=== PATIENT | male | born 1970 | race Caucasian/White ===

== ENCOUNTER 2021-02-17 19:12 | Emergency (ER) | payer BC, SELFPAY ==
--- NOTE | 2021-02-16 19:43 | ECG_ITS ---
Test Reason : CHESTTIGHTNESS Blood Pressure : / mmHG Vent. Rate : 101 BPM Atrial Rate : 107 BPM P-R Int : 000 ms QRS Dur : 084 ms QT Int : 360 ms P-R-T Axes : 000 050 244 degrees QTc Int : 466 ms Atrial fibrillation with rapid ventricular response with premature ventricular or aberrantly conducted complexes ST & T wave abnormality, consider inferior ischemia ST & T wave abnormality, consider anterolateral ischemia Abnormal ECG When compared with ECG of 17-FEB-2021 19:33, Anterolateral ST elevations are not present nonspecific ST-T changes present now Referred By: Darion Harris Electronically Signed By:Levon Almaguer
[2021-02-17 19:25] VITALS: BP 187/100; PULSE 118; RESP 15; O2SAT 98; BMI 40.7
--- NOTE | 2021-02-17 19:27 | PC.NURSE ---
pt has chest tightness with difficutly breathing per pt. ekg done 192. ekg seen by doctor nasra and pt brought back to room 12. pt received the covid vac one week ago and not presents with these symptom. Skin pink warm and dry. talking in full sentences no s/s of distress noted by this rn.
--- NOTE | 2021-02-17 19:29 | ECG_ITS ---
Test Reason : CHESTTIGHTNESS Blood Pressure : / mmHG Vent. Rate : 094 BPM Atrial Rate : 094 BPM P-R Int : 156 ms QRS Dur : 084 ms QT Int : 360 ms P-R-T Axes : 054 051 066 degrees QTc Int : 450 ms Normal sinus rhythm Possible Left atrial enlargement Anteroseptal infarct , possibly acute ACUTE GA / STEMI Abnormal ECG When compared with ECG of 28-JUN-2019 08:09, Anteroseptal infarct is now Present ST elevation now present in Anterior leads T wave inversion now evident in Anterior leads Referred By: Darion Harris Electronically Signed By:SHANI GRANADOS
--- NOTE | 2021-02-17 19:33 | ECG_ITS ---
Test Reason : CHESTTIGHTNESS Blood Pressure : / mmHG Vent. Rate : 090 BPM Atrial Rate : 090 BPM P-R Int : 156 ms QRS Dur : 090 ms QT Int : 348 ms P-R-T Axes : 047 044 066 degrees QTc Int : 425 ms Normal sinus rhythm Anterior infarct (cited on or before 17-FEB-2021) ACUTE CT / STEMI Abnormal ECG When compared with ECG of 17-FEB-2021 19:31, No significant change was found Referred By: Darion Harris Electronically Signed By:Levon Almaguer
--- NOTE | 2021-02-17 19:38 | ED_ITS ---
HPI - Chest Pain General Chief Complaint: Chest Pain Stated Complaint: chest tightness Time Seen by Provider: 02/17/21 19:28 Source: patient Mode of arrival: ambulatory Limitations: no limitations History of Present Illness HPI narrative: Patient with history of diabetes , high cholesterol not taking any medications noticed chest tightness feeling since yesterday evening to bed woke up at 04:00 was feeling fine around 07:00 start feeling chest tightness again which is going on all day along with that patient feels hard of breathing no radiation of pain no diaphoresis no nausea no vomiting patient never had s imilar pain before patient received Onel Oenl vaccine 2 weeks ago complaint: chest discomfort Related Data Allergies Allergy/AdvReac Type Severity Reaction Status Date / Time No Known Allergies Allergy Unverified 06/08/20 15:34 Review of Systems Review of Systems: Constitutional : No Weight loss, No Fever, No Chills ENT/Mouth : No sore throat, No Rhinorrhea Eyes: No Eye Pain, No Swelling Cardiovascular :+Chest Pain, no palpitations Respiratory : No Cough, No Sputum, +shortness of breath Gastrointestinal : no Nausea, No Vomiting, No Diarrhea, No abdominal Pain, no black stools Genitourinary : No Dysuria, No Urinary Frequency Musculoskeletal : No joint pain, No Myalgias, No Joint Swelling Skin : No Skin Lesions, No rash Neuro : No Weakness, No Numbness, No Dizziness, No Headache Psych : No Anxiety/Panic, No Depression Heme/Lymph: No Bruising, No Lymphadenopathy Endocrine : No Polyuria, No Polydipsia All other systems reviewed and are negative [facility] Past Medical History Medical History (Updated 02/18/21 @ 00:00 by Barby Rodriguez) Diabetes mellitus Hyperlipemia Social History Social History Advance Directives: No Advance Directives Information Provided: Yes Physical Exam Vital Signs: Vital Signs: Last Vital Signs Temp 98 F 02/17/21 19:54 Pulse 113 H 02/17/21 19:54 Resp 18 02/17/21 19:54 BP 147/90 H 02/17/21 20:00 Pulse Ox 97 02/17/21 19:54 Body Mass Index 34.0 bp 180//110, W[place] 100 Appearance: Alert. Oriented X3. No acute distress. Eyes: PERRLA, No Nystagmus ENT: Pharynx normal. Oral Mucosa moist Neck: Normal inspection. Neck supple. CVS: Normal heart rate and rhythm. Pulses normal. Respiratory: No respiratory distress. Equal air entry bilateral, no wheezing/rales/rhonchi Abdomen: Soft and nontender. Bowel sounds are present, no mass palpable, no CVA tenderness Skin: Skin warm and dry. Normal skin color. Normal skin turgor. Extremities: No lower extremity edema. No calf tenderness Neuro: Oriented X 3. No motor deficit. No sensory deficit.No cerebellar signs , cranial nerves II-XII intact MDM - Chest Pain MDM Narrative Medical decision making narrative: Patient with STEMI anteroseptal V3 V4 without any other changes for > 12 hours in duration. Case discussed with Dr. Kunz at [facility] will accept the patient not sure need a cardiac catheterization /ER Patient given 5000 units heparin IV, Brilinta 180 mg, aspirin 162 mg, Lipitor 80 mg and started on nitroglycerin drip last blood pressure was 140/90 pulse rate 110 Lab Data Attestation: I reviewed the patient's lab results. Result diagrams: 02/17/21 19:42 02/17/21 19:42 Labs: Lab Results 02/17/21 02/17/21 02/17/21 Range/Units 19:42 19:42 19:42 WBC 9.0 (4.8-10.8) X10*3/uL RBC 4.99 (4.60-5.80) X10*6/uL Hgb 12.7 L (14.0-18.0) g/dl Hct 38.1 L (42-52) % MCV 76.4 L (80-98) fL MCH 25.5 L (27.0-33.0) pg MCHC 33.3 (31.0-36.0) g/dl RDW 13.4 (11.0-16.0) % Plt Count 255 (160-400) X10*3/uL MPV 10.1 (9.4-12.4) fL Immature Gran % (Auto) 0.3 (0.0-0.4) % Neut % (Auto) 67.1 (45-73) % Lymph % (Auto) 21.4 (20-40) % Campbell % (Auto) 9.3 (2-11) % Eos % (Auto) 1.7 (0-4) % Baso % (Auto) 0.2 (0-2) % Lymph # (Auto) 1.9 (1.2-4.9) X10*3/uL Campbell # (Auto) 0.8 (0.1-1.2) X10*3/uL Eos # (Auto) 0.2 (0.0-0.4) X10*3/uL Baso # (Auto) 0.0 (0.0-0.2) X10*3/uL Abs Immat Gran (auto) 0.03 (0.00-0.03) X10*3/uL Absolute Neuts (auto) 6.0 (2.0-8.3) X10*3/uL Absolute Nucleated RBC 0.000 (0.0-0.012) X10*3/uL Nucleated RBC % (auto) 0.0 (0.0-0.2) /100WBC PT 10.5 L (10.8-13.0) SEC INR 0.9 (0.9-1.1) APTT 32.6 (24.1-38.0) SEC D-Dimer < 200 NG/ML Sodium 135 (135-145) mmol/L Potassium 4.2 (3.3-5.1) mmol/L Chloride 102 (96-108) mmol/L Carbon Dioxide 22 (22-29) mmol/L Anion Gap 15 (12-20) BUN 25 H (9-16) mg/dL Creatinine 1.57 H (0.5-1.4) mg/dL Estim Creat Clear Calc 68.4 Estimated GFR 47 Random Glucose 339 H (60-115) mg/dL Calcium 9.1 (8.4-10.2) mg/dL Troponin I High Sens (<3.5-35.0) ng/L COVID-19 ([facility]) (Negative) COVID-19 Clin Com 02/17/21 02/17/21 02/17/21 Range/Units 19:42 19:42 19:55 WBC (4.8-10.8) X10*3/uL RBC (4.60-5.80) X10*6/uL Hgb (14.0-18.0) g/dl Hct (42-52) % MCV (80-98) fL MCH (27.0-33.0) pg MCHC (31.0-36.0) g/dl RDW (11.0-16.0) % Plt Count (160-400) X10*3/uL MPV (9.4-12.4) fL Immature Gran % (Auto) (0.0-0.4) % Neut % (Auto) (45-73) % Lymph % (Auto) (20-40) % Campbell % (Auto) (2-11) % Eos % (Auto) (0-4) % Baso % (Auto) (0-2) % Lymph # (Auto) (1.2-4.9) X10*3/uL Campbell # (Auto) (0.1-1.2) X10*3/uL Eos # (Auto) (0.0-0.4) X10*3/uL Baso # (Auto) (0.0-0.2) X10*3/uL Abs Immat Gran (auto) (0.00-0.03) X10*3/uL Absolute Neuts (auto) (2.0-8.3) X10*3/uL Absolute Nucleated RBC (0.0-0.012) X10*3/uL Nucleated RBC % (auto) (0.0-0.2) /100WBC PT (10.8-13.0) SEC INR (0.9-1.1) APTT Cancelled (24.1-38.0) SEC D-Dimer NG/ML Sodium (135-145) mmol/L Potassium (3.3-5.1) mmol/L Chloride (96-108) mmol/L Carbon Dioxide (22-29) mmol/L Anion Gap (12-20) BUN (9-16) mg/dL Creatinine (0.5-1.4) mg/dL Estim Creat Clear Calc Estimated GFR Random Glucose (60-115) mg/dL Calcium (8.4-10.2) mg/dL Troponin I High Sens 6529.5 H* (<3.5-35.0) ng/L COVID-19 ([facility]) Negative (Negative) COVID-19 Clin Com See Note ECG Data ECG #1: Attestation: I personally reviewed and interpreted this ECG as follows: Ischemic changes: acute STEMI Interpretation: Heart rate [address] elevation V3 V4 with no reciprocal changes impression STEMI Discharge Plan Discharge Clinical Impression: ST elevation (STEMI) myocardial infarction Patient Disposition: er Acute Care Hospital Transfer Details: [facility] [employer] Interventions: Acute Care Transfer Worksheet (ED) Last Done: 02/17/21 20:06 Discharge Date/Time: 02/17/21 20:09
[2021-02-17 19:39] VITALS: BP 180/110; PULSE 105
[2021-02-17] MEDS: Nitroglycerin 0.4 MG TAB.SUBL SUBLINGUAL (19:39)
[2021-02-17] MEDS: Heparin Sodium,Porcine 5,000 UNIT/ML VIAL 5000 UNIT IVPUSH (19:39)
[2021-02-17] MEDS: Aspirin Enteric Coated 81 MG TABLET.DR 162 MG PO (19:39)
[2021-02-17] MEDS: Ticagrelor 90 MG TABLET 180 MG PO (19:41)
[2021-02-17] MEDS: Atorvastatin Calcium 80 MG TABLET PO (19:45)
--- NOTE | 2021-02-17 19:47 | PC.NURSE ---
EMS present by church secretary desk awaiting paperwork. this RN made EMS aware that the patient was ready for transport and asked if they could get him on the stretcher as they were noted to be standing by. PT with at bedside, pt alert, conversing in full and complete sentences. Pt and aware of and agreeable to plan for [place] [facility]
[2021-02-17 19:49] LABS: MANUAL DIFF FLAG NO
[2021-02-17 19:52] LABS: Basophils Percent Auto 0.2 % (0-2); Eosinophils Absolute Auto 0.2 X10*3/uL (0.0-0.4); Eosinophils Percent Auto 1.7 % (0-4); Hematocrit 38.1 % (42-52); Hemoglobin 12.7 g/dl (14.0-18.0); Imm Gran Abs Auto 0.03 X10*3/uL (0.00-0.03); Imm Gran Pct Auto 0.3 % (0.0-0.4); Lymphocytes Absolute Auto 1.9 X10*3/uL (1.2-4.9); Lymphocytes Percent Auto 21.4 % (20-40); Mean Corpuscular HGB Conc 33.3 g/dl (31.0-36.0); Mean Corpuscular Hemoglobin 25.5 pg (27.0-33.0); Mean Corpuscular Volume 76.4 fL (80-98); Mean Platelet Volume 10.1 fL (9.4-12.4); Monocytes Absolute Auto 0.8 X10*3/uL (0.1-1.2); Monocytes Percent Auto 9.3 % (2-11); Neutrophils Percent Auto 67.1 % (45-73); Platelet Count 255 X10*3/uL (160-400); Red Blood Count 4.99 X10*6/uL (4.60-5.80); Red Cell Distribution Width 13.4 % (11.0-16.0)
--- NOTE | 2021-02-17 19:52 | PC.NURSE ---
Pt transferred to EMS stretcher
[2021-02-17 19:54] VITALS: BP 180/110; PULSE 113; RESP 18; TEMP 36.6; O2SAT 97; BMI 34.0
[2021-02-17] MEDS: Nitroglycerin/D5W 100 MG/250 ML INFUS..BTL IVCONT (19:54)
[2021-02-17 20:00] VITALS: BP 147/90
[2021-02-17 20:00] LABS: INTERNATIONAL NORM RATIO 0.9 (0.9-1.1); Prothrombin Time 10.5 SEC (10.8-13.0)
[2021-02-17 20:03] LABS: Partial Thromboplastin Time 32.6 SEC (24.1-38.0)
[2021-02-17 20:17] LABS: Anion Gap 15 (12-20); Blood Urea Nitrogen 25 mg/dL (9-16); Calcium 9.1 mg/dL (8.4-10.2); Carbon Dioxide 22 mmol/L (22-29); Chloride 102 mmol/L (96-108); Creatinine Clr Calc Pharmacy 68.4; Estimated Glomerular Filt Rate 47; Glucose Random 339 mg/dL (60-115); Potassium 4.2 mmol/L (3.3-5.1); Sodium 135 mmol/L (135-145)
[2021-02-17 20:29] LABS: COVID-19 Test Negative (Negative); IDNOW Serial# 9DD0AD1C
[2021-02-17 21:07] LABS: D Dimer < 200 NG/ML
== END 2021-02-17 20:09 | disposition short-term general hospital (02) ==
PROVIDERS: Emergency Provider Internal Medicine
DX: I21.3 ST elevation (STEMI) myocardial infarction of unspecified site (principal); R07.9 Chest pain, unspecified; E11.9 Type 2 diabetes mellitus without complications; Z20.822 Contact with and (suspected) exposure to COVID-19; Z79.899 Other long term (current) drug therapy
CPT/HCPCS: 36415; 80048; 84484; 85025; 85379; 85610; 85730; 87635; 93005; 96374; 96375; 99285

== ENCOUNTER → 2021-02-22 12:17 | Outpatient (BNVA) | payer BC, SELFPAY | PROVIDERS: Visit Provider Internal Medicine ==

== ENCOUNTER → 2021-04-24 14:05 | Outpatient (REF) | payer BC, SELFPAY ==
--- NOTE | 2021-04-24 14:09 | CA_ITS ---
Transthoracic Echocardiogram Patient (Last, First, Middle): Srinath Penn T Gender: Male Date of : 1970 Age: 50 Procedure Date: 04/24/2021 Procedure Type: Transthoracic Echocardiogram Location: OP Height: 175.26 cm Weight: 107.5 kg BSA: 2.22 m2 Heart Rate: bpm BP: 120 / 78 mmHg Tile Machine Operator: BRIDGER Referring MD: Hari Reich MD Symptoms: I22.0 - Subsequent ST elevation (STEMI) myocardial infarc... Study Quality: Fair/Contrast ECG Rhythm: Sinus Conclusions: - The left ventricular systolic function is normal. The calculated ejection fraction is 61% by biplane method. - The mid anteroseptal segment is hypokinetic. - No obvious valvular pathology seen on this study. Findings Procedure Information Contrast agent, definity, is being given per protocol without apparent complications. Left Ventricle Normal left ventricular cavity size. There is mildly increased left ventricular wall thickness. The left ventricular systolic function is normal. The calculated ejection fraction is 61% by biplane method. Diastolic function is normal for age. Wall Motion Rest Echo Findings The mid anteroseptal segment is hypokinetic. Right Ventricle Normal right ventricular cavity size and systolic function. Atria Both atria are normal in size. Aortic Valve There is a normal trileaflet aortic valve. There is no aortic valve stenosis. There is no aortic valve regurgitation. Mitral Valve The mitral valve appears normal. There is trace mitral valve regurgitation. There is no mitral valve stenosis. Pulmonic Valve The pulmonic valve was not well visualized. Tricuspid Valve Normal tricuspid valve structure. There is trace tricuspid valve regurgitation. The pulmonary artery systolic pressure is normal. Great Vessels The aortic annulus, sinuses of valsalva, and asc aorta are normal in size. Venous The inferior vena cava is normal in size and collapses greater than 50% with inspiration. Pericardium/Pleural There is no evidence of pericardial effusion. Prior Study Comparison Changes noted compared to prior study dated: 08/21/2007. See comment on wall motion. Recommendations, Care & Conclusions No obvious valvular pathology seen on this study. Measurements 2D Linear Measurements IVSd: 1.02 0.6-0.9/0.6-1.0 cm LVIDd: 4.20 3.9-5.3/4.2-5.9 cm LVIDd Index: 1.89 2.4-3.2/2.2-3.1 cm/m2 LVIDs: 2.63 2.0-3.6 cm LVPWd: 1.04 0.7-1.1 cm Ao Root: 3.60 2.1-3.5 cm LA Diam: 2.90 2.7-3.8/3.0-4.0 cm LAIDs Index: 1.31 1.5-2.3 cm/m2 LV Mass: 178.08 67-162/88-224 g LV Mass Index: 80.21 43-95/49-115 g/m2 LVOT Diam: 2.20 3.0+(-)1.3 cm 2D Systolic Function EF 4C: 58.70 >55% EF 2C: 62.30 >55% EF BiP: 60.90 >55% Mitral Valve MV Pk E: 0.84 MV PK A: 0.63 MV Decel Time: 236.00 E/A: 1.30 E'Lateral: 11.00 E'Medial: 6.31 E/E' Med: 13.30 E/E' Lat: 7.60 PHT: 69.00 MVA PHT: 3.19 Decel Dawson: 3.56 Aortic Valve AoV Pk Noah: 1.13 AoV Mn Noah: 0.79 AoV VTI: 0.27 AoV Pk Grad: 5.00 Aov Mn Grad: 3.00 CELIA Cont.VTI: 3.79 LVOT LVOT Pk Noah: 1.12 LVOT Mn Noah: 0.83 LVOT VTI: 0.27 LVOT Pk Grad: 5.00 LVOT Mn Grad: 3.00 LVOT Diam: 2.20 LVOT Area: 3.80 Diastolic Function MV Pk E: 0.84 MV Pk A: 0.63 E/A: 1.30 E'Medial: 6.31 E/E' Med: 13.30 E' Laterial: 11.00 E/E' Lat: 7.60 Right Ventricle TAPSE (mm): 2.12 Tricuspid Valve TR Pk Noah: 2.01 TR Pk Grad: 16.00 RA Press: 3.00 RVSP: 19.00 Great Vessels Aorta Ao Root-2D: 3.60 2.0-3.7 cm Ao Asc: 3.20 2.1-3.4 cm Ao Arch: 2.80 Updated in Other Vendor System with Status of Final Hari Reich MD electronically signed on 04/25/2021 3:54:21 PM with status of Final
== END ==
LOC: HO.CARD 14:05
PROVIDERS: Visit Provider Internal Medicine
DX: I22.0 Subsequent ST elevation (STEMI) myocardial infarction of anterior wall (principal); I25.5 Ischemic cardiomyopathy
CPT/HCPCS: 93306; Q9957

== ENCOUNTER → 2021-05-15 15:11 | Outpatient (BNVA) | payer BC, SELFPAY | PROVIDERS: PCP Internal Medicine; Referring Provider Internal Medicine; Visit Provider Internal Medicine ==

== ENCOUNTER 2021-06-21 15:33 | Outpatient (REF) | payer BC, SELFPAY ==
[2021-06-21 16:59] LABS: Basophils Percent Auto 0.5 % (0-2); Eosinophils Absolute Auto 0.2 X10*3/uL (0.0-0.4); Eosinophils Percent Auto 2.7 % (0-4); Hematocrit 37.8 % (42-52); Imm Gran Abs Auto 0.02 X10*3/uL (0.00-0.03); Imm Gran Pct Auto 0.3 % (0.0-0.4); Lymphocytes Absolute Auto 1.6 X10*3/uL (1.2-4.9); Lymphocytes Percent Auto 26.2 % (20-40); MANUAL DIFF FLAG NO; Mean Corpuscular HGB Conc 31.7 g/dl (31.0-36.0); Mean Corpuscular Hemoglobin 26.3 pg (27.0-33.0); Mean Corpuscular Volume 82.9 fL (80-98); Mean Platelet Volume 9.9 fL (9.4-12.4); Monocytes Absolute Auto 0.5 X10*3/uL (0.1-1.2); Monocytes Percent Auto 8.2 % (2-11); Neutrophils Absolute Auto 3.7 X10*3/uL (2.0-8.3); Neutrophils Percent Auto 62.1 % (45-73); Platelet Count 239 X10*3/uL (160-400); Red Blood Count 4.56 X10*6/uL (4.60-5.80); Red Cell Distribution Width 15.1 % (11.0-16.0)
[2021-06-21 17:33] LABS: Estimated Average Glucose 131 mg/dL; Hemoglobin A1c % 6.2 %
[2021-06-21 17:53] LABS: Appearance Urine CLEAR; Color Urine YELLOW; Glucose Urine UA NEG (NEG); Leukocyte Esterase Urine NEG (NEG); Nitrite Urine NEG (NEG); Specific Gravity - Urine 1.025 (1.005-1.025); Urine Blood NEG (NEG); Urine Ketones NEG (NEG); Urine Protein NEG (NEG-TRACE)
[2021-06-21 17:58] LABS: Alanine Aminotransferase 32 U/L (0-40); Albumin Level 4.3 g/dL (3.5-5.0); Alkaline Phosphatase 63 U/L (39-117); Anion Gap 13 (12-20); Aspartate Amino Transferase 18 U/L (5-37); Bilirubin Total 0.6 mg/dL (0.0-1.0); Blood Urea Nitrogen 19 mg/dL (9-16); Calcium 9.4 mg/dL (8.4-10.2); Carbon Dioxide 25 mmol/L (22-29); Chloride 107 mmol/L (96-108); Estimated Glomerular Filt Rate 56; Glucose Fasting 95 mg/dL (60-99); Iron 44 mcg/dL (45-160); Percent Iron Saturation 12 % (15-50); Potassium 4.9 mmol/L (3.3-5.1); Sodium 140 mmol/L (135-145); Total Iron Binding Capacity 361 mcg/dL (228-428); Total Protein 6.9 g/dL (6.5-8.0); Unsaturated Iron Binding 317 ug/dL
[2021-06-21 17:59] LABS: Alanine Aminotransferase 31 U/L (0-40); Albumin Level 4.3 g/dL (3.5-5.0); Alkaline Phosphatase 64 U/L (39-117); Aspartate Amino Transferase 18 U/L (5-37); Bilirubin Direct 0.2 mg/dL (0.0-0.5); Bilirubin Total 0.6 mg/dL (0.0-1.0); Cholesterol 138 mg/dL; HDL Cholesterol 39 mg/dL; LDL Cholesterol Calculated 75 mg/dl; Total Protein 6.8 g/dL (6.5-8.0); Triglycerides 124 mg/dL
[2021-06-21 18:02] LABS: Creatinine Urine 143.29 mg/dL; Microalbum/Creatinine Ratio Ur 17.4 ug/mg cr
== END 2021-06-21 15:34 | disposition home or self-care (01) ==
LOC: HO.LAB 15:33
PROVIDERS: Absent Provider Internal Medicine; PCP Internal Medicine; Visit Provider Internal Medicine
DX: I25.10 Atherosclerotic heart disease of native coronary artery without angina pectoris (principal); E11.9 Type 2 diabetes mellitus without complications; E78.5 Hyperlipidemia, unspecified; D64.9 Anemia, unspecified
CPT/HCPCS: 36415; 80053; 80061; 80076; 81003; 82043; 82248; 83036; 83540; 85025

== ENCOUNTER 2021-10-17 10:27 | Outpatient (REF) | payer BC, SELFPAY ==
[2021-10-17 10:50] LABS: MANUAL DIFF FLAG NO
[2021-10-17 11:01] LABS: Basophils Percent Auto 0.6 % (0-2); Eosinophils Absolute Auto 0.2 X10*3/uL (0.0-0.4); Eosinophils Percent Auto 3.1 % (0-4); Hematocrit 40.7 % (42.0-52.0); Hemoglobin 13.3 g/dl (14.0-18.0); Imm Gran Abs Auto 0.02 X10*3/uL (0.00-0.03); Imm Gran Pct Auto 0.3 % (0.0-0.4); Lymphocytes Absolute Auto 1.8 X10*3/uL (1.2-4.9); Lymphocytes Percent Auto 25.8 % (20-40); Mean Corpuscular HGB Conc 32.7 g/dl (31.0-36.0); Mean Corpuscular Volume 82.6 fL (80.0-98.0); Monocytes Absolute Auto 0.5 X10*3/uL (0.1-1.2); Monocytes Percent Auto 7.2 % (2-11); Neutrophils Absolute Auto 4.3 x10*3/uL (2.0-8.3); Platelet Count 240 X10*3/uL (160-400); Red Blood Count 4.93 X10*6/uL (4.60-5.80); White Blood Count 6.8 X10*3/uL (4.8-10.8)
[2021-10-17 11:11] LABS: Estimated Average Glucose 140 mg/dL; Hemoglobin A1c % 6.5 %
[2021-10-17 11:34] LABS: Appearance Urine CLEAR; Color Urine YELLOW; Glucose Urine UA NEG (NEG); Leukocyte Esterase Urine NEG (NEG); Nitrite Urine NEG (NEG); Specific Gravity - Urine 1.025 (1.005-1.025); Urine Blood NEG (NEG); Urine Ketones NEG (NEG); Urine Protein NEG (NEG-TRACE)
[2021-10-17 11:36] LABS: Alanine Aminotransferase 26 U/L (0-40); Alkaline Phosphatase 65 U/L (39-117); Anion Gap 12 (12-20); Aspartate Amino Transferase 16 U/L (5-37); Bilirubin Total 0.4 mg/dL (0.0-1.0); Blood Urea Nitrogen 19 mg/dL (9-16); Calcium 9.4 mg/dL (8.4-10.2); Carbon Dioxide 21 mmol/L (22-29); Chloride 110 mmol/L (96-108); Cholesterol 132 mg/dL; Estimated Glomerular Filt Rate 52; Glucose Fasting 133 mg/dL (60-99); HDL Cholesterol 30 mg/dL; LDL Cholesterol Calculated 66 mg/dl; Potassium 4.4 mmol/L (3.3-5.1); Sodium 139 mmol/L (135-145); Total Protein 6.5 g/dL (6.5-8.0); Triglycerides 181 mg/dL
[2021-10-17 12:00] LABS: Creatinine Urine 142.69 mg/dL; Microalbum/Creatinine Ratio Ur 5.6 ug/mg cr
== END 2021-10-17 10:28 | disposition home or self-care (01) ==
LOC: HO.LAB 10:27
PROVIDERS: PCP Internal Medicine; Visit Provider Internal Medicine
DX: E11.9 Type 2 diabetes mellitus without complications (principal); I25.10 Atherosclerotic heart disease of native coronary artery without angina pectoris; I10 Essential (primary) hypertension; R60.9 Edema, unspecified; E78.00 Pure hypercholesterolemia, unspecified
CPT/HCPCS: 36415; 80053; 80061; 81003; 82043; 83036; 85025

== ENCOUNTER → 2021-11-21 09:09 | Outpatient (BNVA) | payer BC, SELFPAY | PROVIDERS: PCP Internal Medicine; Visit Provider Internal Medicine ==

== ENCOUNTER 2022-01-23 14:29 | Outpatient (REF) | payer BC, SELFPAY ==
[2022-01-23 15:13] LABS: Estimated Average Glucose 143 mg/dL; Hemoglobin A1c % 6.6 %
[2022-01-23 15:19] LABS: Alanine Aminotransferase 22 U/L (0-40); Alkaline Phosphatase 63 U/L (39-117); Anion Gap 11 (12-20); Aspartate Amino Transferase 17 U/L (5-37); Bilirubin Total 0.9 mg/dL (0.0-1.0); Blood Urea Nitrogen 18 mg/dL (9-16); Calcium 9.2 mg/dL (8.4-10.2); Carbon Dioxide 24 mmol/L (22-29); Chloride 108 mmol/L (96-108); Estimated Glomerular Filt Rate 53; Glucose Random 130 mg/dL (60-115); Potassium 4.2 mmol/L (3.3-5.1); Sodium 139 mmol/L (135-145); Total Protein 6.6 g/dL (6.5-8.0)
[2022-01-23 15:25] LABS: Creatinine Urine 167.49 mg/dL; Microalbum/Creatinine Ratio Ur 9.5 ug/mg cr
== END 2022-01-23 14:30 | disposition home or self-care (01) ==
LOC: HO.LAB 14:29
PROVIDERS: PCP Internal Medicine; Visit Provider Internal Medicine
DX: E11.22 Type 2 diabetes mellitus with diabetic chronic kidney disease (principal); I25.10 Atherosclerotic heart disease of native coronary artery without angina pectoris; N18.9 Chronic kidney disease, unspecified; Z79.4 Long term (current) use of insulin
CPT/HCPCS: 36415; 80053; 82043; 83036

== ENCOUNTER 2022-04-02 06:13 | Day surgery (SDC) | payer BC, SELFPAY ==
[2022-03-27 13:37] VITALS: BMI 37.0
--- NOTE | 2022-04-01 12:05 | P.CONAN_ITS ---
Documented by User: Kristina Ribera NP 04/01/22 12:12 HPI - Anesthesia Eval Consult details Narrative: 51yo M for Colonoscopy stable at 11/2021 Cardiology visit, 6 month f/u - ok to hold brillinta, but pt not to stop asa PMFSH Active Problems Active Problems: All Active Problems (Updated 03/27/22 @ 13:40 by Marbella Long RN) Subsequent ST elevation (STEMI) myocardial infarction of anterior wall (Acute) Ischemic cardiomyopathy (Acute) Type 2 diabetes mellitus with unspecified complications (Acute) Essential hypertension (Acute) Other and unspecified hyperlipidemia (Acute) Past Medical History Medical History CAD (coronary artery disease) Cardiomyopathy Diabetes mellitus HTN (hypertension) Hyperlipemia Myocardial infarction Family History Family History Father Cancer High cholesterol Mother High cholesterol Heart disease Maternal Grandmother Pacemaker Maternal Grandfather Heart attack Maternal Uncle Heart attack Surgical History Surgical History History of heart artery stent (~01/2021) Social History Social History Patient Tobacco Use Status: Never used Tobacco Use of substances other than those prescribed or required for medical reasons: Yes Substance Use Frequency: Occasionally Are you DNR?: No Advance Directives: No Advance Directives Information Provided: Yes Meds Allergies Allergy/AdvReac Type Severity Reaction Status Date / Time No Known Allergies Allergy Verified 11/21/21 09:15 Home Medications Medication Instructions Recorded Confirmed Last Taken Type atorvastatin 80 mg tablet 80 mg PO BEDTIME 02/22/21 03/27/22 Unknown History carvedilol 6.25 mg tablet 6.25 mg PO BID 02/22/21 03/27/22 Unknown History isosorbide mononitrate 30 mg 30 mg PO DAILY 02/22/21 03/27/22 Unknown History tablet,extended release 24 hr lisinopril 5 mg tablet 5 mg PO DAILY 02/22/21 03/27/22 Unknown History ticagrelor 90 mg tablet 90 mg PO BID 02/22/21 03/27/22 Unknown History dulaglutide 1.5 mg/0.5 mL 1.5 mg subcut QWEEK 05/15/21 03/27/22 Unknown History subcutaneous pen injector (Trulicity) aspirin 81 mg chewable tablet 81 mg PO DAILY 11/21/21 04/02/22 03/28/22 History insulin lispro 100 unit/mL subcut 11/21/21 11/21/21 Unknown History subcutaneous solution (Humalog U-100 Insulin) Exam Exam Date and Time: April 01, 2022 1205 Height,Weight and Vital Signs: Height 5 ft 9 in Weight 113.852 kg Pertinent Lab Results Pertinent Lab Results: Laboratory Tests 10/17/21 01/23/22 10:48 14:40 WBC 6.8 Hgb 13.3 L Hct 40.7 L Plt Count 240 Sodium 139 Potassium 4.2 Chloride 108 Carbon Dioxide 24 BUN 18 H Creatinine 1.43 H Narrative Narrative: ECHO 04/2021 (post stemi/stent) Conclusions: - The left ventricular systolic function is normal.? The ? calculated ejection fraction is 61% by biplane method. ? - The mid anteroseptal segment is hypokinetic. ? - No obvious valvular pathology seen on this study.? Assessment and Plan Assessment Anesthesia Assessment: Chart Reviewed Documented by User: Day Wheeler MD 04/02/22 07:44 [facility] Past Medical History Medical History CAD (coronary artery disease) Cardiomyopathy Diabetes mellitus HTN (hypertension) Hyperlipemia Myocardial infarction Functional capacity: independent ambulation Family History Family History Father Cancer High cholesterol Mother High cholesterol Heart disease Maternal Grandmother Pacemaker Maternal Grandfather Heart attack Maternal Uncle Heart attack Family history of problems with anesthesia: No Surgical History Surgical History History of heart artery stent (~01/2021) History of Problems with Anesthesia: No Social History Social History Patient Tobacco Use Status: Never used Tobacco Use of substances other than those prescribed or required for medical reasons: Yes Substance Use Frequency: Occasionally Are you DNR?: No Advance Directives: No Advance Directives Information Provided: Yes Meds Allergies Allergy/AdvReac Type Severity Reaction Status Date / Time No Known Allergies Allergy Verified 11/21/21 09:15 Home Medications Medication Instructions Recorded Confirmed Last Taken Type atorvastatin 80 mg tablet 80 mg PO BEDTIME 02/22/21 03/27/22 Unknown History carvedilol 6.25 mg tablet 6.25 mg PO BID 02/22/21 03/27/22 Unknown History isosorbide mononitrate 30 mg 30 mg PO DAILY 02/22/21 03/27/22 Unknown History tablet,extended release 24 hr lisinopril 5 mg tablet 5 mg PO DAILY 02/22/21 03/27/22 Unknown History ticagrelor 90 mg tablet 90 mg PO BID 02/22/21 03/27/22 Unknown History dulaglutide 1.5 mg/0.5 mL 1.5 mg subcut QWEEK 05/15/21 03/27/22 Unknown History subcutaneous pen injector (Trulicity) aspirin 81 mg chewable tablet 81 mg PO DAILY 11/21/21 04/02/22 03/28/22 History insulin lispro 100 unit/mL subcut 11/21/21 11/21/21 Unknown History subcutaneous solution (Humalog U-100 Insulin) Exam Airway Mallampati Class: II TM Dist: >3cm Neck ROM: Full Heart: RRR Lungs: CTA Assessment and Plan Final Anesthetic Review Family History of Problems with Anesthesia: No History of Problems with Anesthesia: No NPO: Yes ASA Class: II Final Preanesthetic Review: No Changes in Pt Med Stat, Meds/Allgs Chart Reviewed, Consent Obtained/Reviewed and Anes Risks/Benef Reviewed Patient Risk: Low Procedure Risk: Low Anesthetic Plan Anesthetic Plan: MAC:
[2022-04-02 06:43] VITALS: BMI 38.7
[2022-04-02 06:46] LABS: Glucose, Whole Blood 119 mg/dL (60-115)
[2022-04-02 06:49] VITALS: BP 138/92; PULSE 86; RESP 16; TEMP 36.3; O2SAT 98
[2022-04-02] MEDS: Lactated Ringers 1,000 ML 100 ML IVCONT (06:52)
--- NOTE | 2022-04-02 07:22 | MHC.SHP ---
Pre-Procedural Eval Section A Date of Service: 04/02/22 Section B Chief Complaint: Hemorrhage of anus and rectum Details of Present Illness: see H&P no changes Relevant Family History (Specify if Yes): No Relevant Social History: None Present Medications: see Short Stay Collaborative assessment Medical History: No relevant PMH History of Previous Operations: No relevant previous surgery Allergies: Allergies Allergy/AdvReac Type Severity Reaction Status Date / Time No Known Allergies Allergy Verified 11/21/21 09:15 Review of Systems Sugical H&P ROS: Negative: Constitution, Cardiovascular, Respiratory, Neurological, Psychiatric, Hem-Onc, Allergic/Immunologic, Gastrointestinal, Genitourinary, Musculoskeletal, Integumentary, Endocrine and Eyes/Ears/Nose/Throat Exam Surgical H&P Exam: Normal: HEENT, Normal: Heart, Normal: Lungs, Normal: Extremities, Normal: Abdomen, Normal: Skin and Normal: Neurological Plan Diagnosis/Plan: Unchanged I have reviewed the history and physical and performed a pertinent physical examination on my patient. No changes have occurred unless specified.
[2022-04-02 08:00] VITALS: BP 105/66; PULSE 92; RESP 16; TEMP 36.3; O2SAT 94
--- NOTE | 2022-04-02 08:00 | PM.OP ---
Brief Operative Note Date of Service: 04/02/22 Pre-op diagnosis: rectal bleeding Post-op diagnosis: same (colon polyp) Procedure: colonoscopy Surgeon: Ryan Hughes Anesthesia: MAC Was an Paramedic Instructor used for this Procedure?: No Estimated blood loss (mL): 0 Pathology: none sent (polyp x1) Condition: stable Disposition: PACU
[2022-04-02 08:12] LABS: Glucose, Whole Blood 130 mg/dL (60-115)
[2022-04-02 08:15] VITALS: BP 136/91; PULSE 89; RESP 16; O2SAT 97
--- NOTE | 2022-04-02 09:09 | HO.POSTANES ---
Post Anesthesia Evaluation Post Anesthesia Evaluation Vital Signs: Vital Signs Temp Pulse Resp BP Pulse Ox O2 Del Method 04/02/22 08:15 89 16 136/91 H 97 Room Air 04/02/22 08:00 97.3 F 92 16 105/66 94 Room Air 04/02/22 06:49 97.3 F 86 16 138/92 H 98 Room Air Anesthesia: Monitored Mental Status: Awake Pain Control: Satisfactory Nausea/Vomiting: None Hydration: Adequate Anesthesia-Related Issues: No Anes. Related Issues
--- NOTE | 2022-04-02 10:09 | OP_ITS ---
SURGEON: Ryan Hughes MD INDICATIONS: Rectal bleeding. PREOPERATIVE DIAGNOSIS: POSTOPERATIVE DIAGNOSIS: PROCEDURE PERFORMED: ESTIMATED BLOOD LOSS: COMPLICATIONS: ANESTHESIA: ASSISTANTS: SPECIMENS: PROCEDURE: Colonoscopy to the terminal ileum with snare polypectomy. MEDICATIONS: Monitored anesthesia care. DESCRIPTION OF PROCEDURE: History and physical performed. The risks and benefits of the procedure were explained to the patient. Informed consent was obtained. The patient was placed in the left lateral decubitus position. A digital rectal exam was performed and was found to be normal. The Olympus pediatric video colonoscope was introduced into the rectum and advanced to the cecum without difficulty. The cecum was identified by transillumination, palpation, and identification of ileocecal valve, examination was performed. The scope was removed. He tolerated the procedure well and was taken to recovery in stable condition. FINDINGS: The terminal ileum was normal, visualized colonic mucosa was normal. There was a large amount of liquid and semi-digested food rather that limited the sensitivity examination for detection of small polyps. This was particularly present in the right colon, cecum, and descending colon. These areas were not well seen at all and a polyp could have been missed at 35 cm was a 6 mm to 7 mm polyp, which was removed with a snare and recovered via suction. No other polyps were identified. Retroflexed examination showed some small to moderate-sized internal hemorrhoids. IMPRESSION: 1. Colon polyp. 2. Limited examination as above. RECOMMENDATIONS: 1. Follow up the biopsy results. 2. Repeat colonoscopy is recommended in 6-12 months for reexamination of the areas that were not seen well. MD ANGELIA Mejia/TAVIAL / [id number]
== END 2022-04-02 09:09 | disposition home or self-care (01) ==
PROVIDERS: PCP Internal Medicine; Visit Provider Internal Medicine Gastroenterology
PROC: 0DJD8ZZ Inspection of Lower Intestinal Tract, Via Natural or Artificial Opening Endoscopic (ICD-10-PCS; CPT 45378; principal; 2022-04-02 07:30)
DX: K62.5 Hemorrhage of anus and rectum (principal); D12.5 Benign neoplasm of sigmoid colon; K64.8 Other hemorrhoids; R19.7 Diarrhea, unspecified; Z80.0 Family history of malignant neoplasm of digestive organs; I25.10 Atherosclerotic heart disease of native coronary artery without angina pectoris; Z98.61 Coronary angioplasty status; I25.2 Old myocardial infarction; I10 Essential (primary) hypertension; E78.00 Pure hypercholesterolemia, unspecified; E11.9 Type 2 diabetes mellitus without complications; Z79.4 Long term (current) use of insulin; Z79.02 Long term (current) use of antithrombotics/antiplatelets; Z79.82 Long term (current) use of aspirin; Z79.899 Other long term (current) drug therapy; Z87.891 Personal history of nicotine dependence
CPT/HCPCS: 45385; 82947; 88305

== ENCOUNTER → 2022-05-28 09:49 | Outpatient (BNVA) | payer BC, SELFPAY | PROVIDERS: PCP Internal Medicine; Referring Provider Internal Medicine; Visit Provider Internal Medicine | DX: I22.0 Subsequent ST elevation (STEMI) myocardial infarction of anterior wall (principal); I25.5 Ischemic cardiomyopathy; I12.9 Hypertensive chronic kidney disease with stage 1 through stage 4 chronic kidney disease, or unspecified chronic kidney disease; N18.9 Chronic kidney disease, unspecified; E11.22 Type 2 diabetes mellitus with diabetic chronic kidney disease; E78.5 Hyperlipidemia, unspecified | CPT/HCPCS: 93005 ==

== ENCOUNTER 2022-09-09 10:47 | Outpatient (REF) | payer BC, SELFPAY ==
[2022-09-09 13:44] LABS: MANUAL DIFF FLAG NO
[2022-09-09 13:47] LABS: Basophils Absolute Auto 0.1 X10*3/uL (0.0-0.2); Basophils Percent Auto 1.2 % (0-2); Eosinophils Absolute Auto 0.2 X10*3/uL (0.0-0.4); Eosinophils Percent Auto 3.6 % (0-4); Hematocrit 40.6 % (42.0-52.0); Hemoglobin 12.8 g/dl (14.0-18.0); Imm Gran Abs Auto 0.02 X10*3/uL (0.00-0.03); Imm Gran Pct Auto 0.3 % (0.0-0.4); Lymphocytes Absolute Auto 1.8 X10*3/uL (1.2-4.9); Mean Corpuscular HGB Conc 31.5 g/dl (31.0-36.0); Mean Corpuscular Hemoglobin 23.6 pg (27.0-33.0); Mean Corpuscular Volume 74.9 fL (80.0-98.0); Mean Platelet Volume 10.5 fL (9.4-12.4); Monocytes Absolute Auto 0.5 X10*3/uL (0.1-1.2); Monocytes Percent Auto 7.4 % (2-11); Neutrophils Absolute Auto 3.5 x10*3/uL (2.0-8.3); Neutrophils Percent Auto 57.5 % (45-73); Platelet Count 307 X10*3/uL (160-400); Red Blood Count 5.42 X10*6/uL (4.60-5.80); Red Cell Distribution Width 13.6 % (11.0-16.0); White Blood Count 6.1 X10*3/uL (4.8-10.8)
[2022-09-09 13:58] LABS: Estimated Average Glucose 206 mg/dL; Hemoglobin A1c % 8.8 %
[2022-09-09 14:01] LABS: Alanine Aminotransferase 24 U/L (0-40); Albumin Level 4.3 g/dL (3.5-5.0); Alkaline Phosphatase 82 U/L (39-117); Anion Gap 13 (12-20); Aspartate Amino Transferase 15 U/L (5-37); Bilirubin Total 0.6 mg/dL (0.0-1.0); Blood Urea Nitrogen 14 mg/dL (9-16); Calcium 9.8 mg/dL (8.4-10.2); Carbon Dioxide 25 mmol/L (22-29); Chloride 105 mmol/L (96-108); Estimated Glomerular Filt Rate 51; Glucose Random 213 mg/dL (60-115); Potassium 4.5 mmol/L (3.3-5.1); Sodium 138 mmol/L (135-145); Total Protein 6.9 g/dL (6.5-8.0)
[2022-09-09 14:42] LABS: Creatinine Urine 295.23 mg/dL; Microalbum/Creatinine Ratio Ur 101.9 ug/mg cr
== END 2022-09-09 10:48 | disposition home or self-care (01) ==
LOC: HO.10HDL 10:47
PROVIDERS: Visit Provider Internal Medicine
DX: I12.9 Hypertensive chronic kidney disease with stage 1 through stage 4 chronic kidney disease, or unspecified chronic kidney disease (principal); E11.22 Type 2 diabetes mellitus with diabetic chronic kidney disease; N18.9 Chronic kidney disease, unspecified
CPT/HCPCS: 36415; 80053; 82043; 83036; 85025

== ENCOUNTER 2022-12-09 11:23 | Outpatient (REF) | payer BC, SELFPAY ==
[2022-12-09 13:22] LABS: MANUAL DIFF FLAG NO
[2022-12-09 13:32] LABS: Basophils Absolute Auto 0.1 X10*3/uL (0.0-0.2); Basophils Percent Auto 0.8 % (0-2); Eosinophils Absolute Auto 0.2 X10*3/uL (0.0-0.4); Eosinophils Percent Auto 2.6 % (0-4); Hematocrit 39.2 % (42.0-52.0); Hemoglobin 11.8 g/dl (14.0-18.0); Imm Gran Abs Auto 0.04 X10*3/uL (0.00-0.03); Imm Gran Pct Auto 0.7 % (0.0-0.4); Lymphocytes Absolute Auto 1.9 X10*3/uL (1.2-4.9); Lymphocytes Percent Auto 30.6 % (20-40); Mean Corpuscular HGB Conc 30.1 g/dl (31.0-36.0); Mean Corpuscular Hemoglobin 22.5 pg (27.0-33.0); Mean Corpuscular Volume 74.7 fL (80.0-98.0); Mean Platelet Volume 10.6 fL (9.4-12.4); Monocytes Absolute Auto 0.5 X10*3/uL (0.1-1.2); Monocytes Percent Auto 8.2 % (2-11); Neutrophils Absolute Auto 3.5 x10*3/uL (2.0-8.3); Neutrophils Percent Auto 57.1 % (45-73); Platelet Count 327 X10*3/uL (160-400); Red Blood Count 5.25 X10*6/uL (4.60-5.80); Red Cell Distribution Width 14.4 % (11.0-16.0); White Blood Count 6.1 X10*3/uL (4.8-10.8)
[2022-12-09 13:56] LABS: Alanine Aminotransferase 23 U/L (0-40); Alkaline Phosphatase 92 U/L (39-117); Anion Gap 10 (12-20); Aspartate Amino Transferase 20 U/L (5-37); Bilirubin Total 0.4 mg/dL (0.0-1.0); Blood Urea Nitrogen 19 mg/dL (9-16); Calcium 8.9 mg/dL (8.4-10.2); Carbon Dioxide 24 mmol/L (22-29); Chloride 107 mmol/L (96-108); Cholesterol 202 mg/dL; Estimated Glomerular Filt Rate 54; Glucose Fasting 273 mg/dL (60-99); HDL Cholesterol 30 mg/dL; LDL Cholesterol Calculated 97 mg/dl; Potassium 4.4 mmol/L (3.3-5.1); Sodium 137 mmol/L (135-145); Total Protein 6.4 g/dL (6.5-8.0); Triglycerides 378 mg/dL
[2022-12-09 14:33] LABS: Estimated Average Glucose 312 mg/dL; Hemoglobin A1c % 12.5 %
== END 2022-12-09 11:24 | disposition home or self-care (01) ==
LOC: HO.10HDL 11:23
PROVIDERS: Visit Provider Internal Medicine
DX: E11.9 Type 2 diabetes mellitus without complications (principal); E78.00 Pure hypercholesterolemia, unspecified; N18.9 Chronic kidney disease, unspecified; K21.9 Gastro-esophageal reflux disease without esophagitis; Z79.4 Long term (current) use of insulin
CPT/HCPCS: 36415; 80053; 80061; 83036; 85025

== ENCOUNTER → 2023-01-07 14:00 | Outpatient (BNVA) | payer BC, SELFPAY | PROVIDERS: PCP Internal Medicine; Visit Provider Orthopaedic Surgery | DX: Z13.89 Encounter for screening for other disorder (principal) ==

== ENCOUNTER → 2023-01-13 14:17 | Outpatient (BNVA) | payer BC, SELFPAY | PROVIDERS: PCP Internal Medicine; Referring Provider Internal Medicine; Visit Provider Internal Medicine | DX: Z13.89 Encounter for screening for other disorder (principal) ==

== ENCOUNTER 2023-06-06 | Outpatient (REF) | payer BC, SELFPAY ==
[2023-06-06 15:15] LABS: Glucose Random 146 mg/dL (60-115)
[2023-06-06 15:38] LABS: Estimated Average Glucose 194 mg/dL; Hemoglobin A1c % 8.4 % (<6.0)
== END 2023-06-06 00:01 | disposition home or self-care (01) ==
LOC: HO.LAB
PROVIDERS: PCP Internal Medicine; Visit Provider Physician Assistant Surgical
DX: E11.9 Type 2 diabetes mellitus without complications (principal); E66.9 Obesity, unspecified; Z68.36 Body mass index [BMI] 36.0-36.9, adult; Z79.899 Other long term (current) drug therapy
CPT/HCPCS: 36415; 82947; 83036; 99453

== ENCOUNTER 2023-06-06 13:57 | Outpatient (AMB) | payer BC, SELFPAY ==
--- NOTE | 2023-06-06 15:01 | A.OFFVIS_ITS ---
Intake VS Expanded 06/06/23 17:36 Height 5 ft 9 in Weight 244 lb 4 oz BMI 36.1 Intake Visit Reasons: OV Metabolic group clinic Human Resources Benefits Specialist Required: No Allergies No Known Allergies Allergy (Verified 01/13/23 14:23) Medication List - Last Reconciled 06/06/23 by ESTEFANIA Ellis aspirin 81 mg PO DAILY atorvastatin 80 mg PO BEDTIME carvedilol 6.25 mg PO BID dulaglutide (Trulicity) 1.5 mg subcut QWEEK insulin lispro (Humalog U-100 Insulin) subcut isosorbide mononitrate ER 30 mg PO DAILY lisinopril 5 mg PO DAILY nitroglycerin 0.4 mg sublingual Q5M PRN HPI HPI Comments History of Present Illness Details 52 yo male presented for metabolic clini c Listened to presentation Received scale and this was set up with her phone and Withings sandy Went through Right BMI sandy and received a meal plan and exercise plan [facility] Medical History HTN (hypertension) Cardiomyopathy Myocardial infarction CAD (coronary artery disease) Hyperlipemia Diabetes mellitus Surgical History History of heart artery stent (~01/2021) Family History Father Cancer High cholesterol Mother High cholesterol Heart disease Maternal Grandmother Pacemaker Maternal Grandfather Heart attack Maternal Uncle Heart attack Social History Patient Tobacco Use Status: Never used Tobacco Current occupational status: employed 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 Given meal plan, exercise plan and body composition scale. Has my cell number and Dr Dominique for improved communication and encouraged to text with any problems. Orders: Orders Glucose Random Today E11.9 - Type 2 diabetes mellitus without complications Hemoglobin A1c Today E11.9 - Type 2 diabetes mellitus without complications Coding Level of Care Code 99138 RPM Intital setup, [facility] Diagnoses Obesity (BMI 30-39.9) E66.9
[2023-06-06 17:36] VITALS: BMI 36.1
== END 2023-06-06 17:49 | disposition home or self-care (01) ==
LOC: HO.META 13:57
PROVIDERS: PCP Internal Medicine; Visit Provider Physician Assistant Surgical
DX: E66.9 Obesity, unspecified (principal)

== ENCOUNTER 2023-06-20 12:34 | Outpatient (REF) | payer BC, SELFPAY ==
[2023-06-20 13:50] LABS: MANUAL DIFF FLAG NO
[2023-06-20 13:58] LABS: Basophils Absolute Auto 0.1 X10*3/uL (0.0-0.2); Basophils Percent Auto 0.7 % (0-2); Eosinophils Absolute Auto 0.1 X10*3/uL (0.0-0.4); Eosinophils Percent Auto 1.3 % (0-4); Hematocrit 41.2 % (42.0-52.0); Hemoglobin 12.2 g/dl (14.0-18.0); Imm Gran Abs Auto 0.03 X10*3/uL (0.00-0.03); Imm Gran Pct Auto 0.4 % (0.0-0.4); Lymphocytes Absolute Auto 1.8 X10*3/uL (1.2-4.9); Lymphocytes Percent Auto 26.6 % (20-40); Mean Corpuscular HGB Conc 29.6 g/dl (31.0-36.0); Mean Corpuscular Hemoglobin 21.7 pg (27.0-33.0); Mean Corpuscular Volume 73.4 fL (80.0-98.0); Mean Platelet Volume 9.2 fL (9.4-12.4); Monocytes Absolute Auto 0.5 X10*3/uL (0.1-1.2); Monocytes Percent Auto 6.9 % (2-11); Neutrophils Absolute Auto 4.4 x10*3/uL (2.0-8.3); Neutrophils Percent Auto 64.1 % (45-73); Platelet Count 388 X10*3/uL (160-400); Red Blood Count 5.61 X10*6/uL (4.60-5.80); White Blood Count 6.9 X10*3/uL (4.8-10.8)
[2023-06-20 14:26] LABS: Alanine Aminotransferase 15 U/L (0-40); Albumin Level 4.4 g/dL (3.5-5.0); Alkaline Phosphatase 61 U/L (39-117); Anion Gap 17 (12-20); Aspartate Amino Transferase 14 U/L (5-37); Bilirubin Total 0.5 mg/dL (0.0-1.0); Blood Urea Nitrogen 24 mg/dL (9-16); Calcium 9.5 mg/dL (8.4-10.2); Carbon Dioxide 21 mmol/L (22-29); Chloride 107 mmol/L (96-108); Cholesterol 189 mg/dL (<200); Estimated Glomerular Filt Rate 58; Glucose Fasting 95 mg/dL (60-99); HDL Cholesterol 37 mg/dL (>40); LDL Cholesterol Calculated 125 mg/dL (<100); Potassium 4.2 mmol/L (3.3-5.1); Sodium 141 mmol/L (135-145); Total Protein 7.3 g/dL (6.5-8.0); Triglycerides 135 mg/dL (<150)
== END 2023-06-20 12:35 | disposition home or self-care (01) ==
LOC: HO.LAB 12:34
PROVIDERS: Absent Provider Internal Medicine; PCP Internal Medicine; Visit Provider Physician Assistant Surgical
DX: E11.9 Type 2 diabetes mellitus without complications (principal); E78.5 Hyperlipidemia, unspecified; Z79.4 Long term (current) use of insulin
CPT/HCPCS: 36415; 80053; 80061; 85025; 99454

== ENCOUNTER 2023-06-20 12:34 | Outpatient (AMB) | payer BC, SELFPAY ==
--- NOTE | 2023-06-20 12:55 | A.OFFVIS_ITS ---
Intake VS Expanded 06/20/23 13:39 Height 5 ft 9 in Weight 232 lb 9.6 oz BMI 34.3 Intake Visit Reasons: (OV) [facility] Allergies No Known Allergies Allergy (Verified 01/13/23 14:23) HPI HPI Comments History of Present Illness Details he has not done shakes or bars today as he has diagnostic imaging. He has had a couple episodes of indiscretion at the big e, however he is mostly sticking to the meal plan. he has not been exercising as much due to waking at 4 am for work and then leaving at 3 in the afternoon and gets home after an hour. He has noticed an increase in walking outside on his days off. He is tracking calories by [employer] and [employer]. 5-6 days not eating the evening bar on or days. drinking 16-20 oz water Reports that since starting the meal plan, overall feeling much better and BS have improved. Basal rate insulin max 2 u/hr and additional bolus insulin has decreased from an average of 40-50/day down to 18-25 units daily. 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 Recc decrease basal rate to 1.9 u/hr bolus dose has decr to 18-22 from 40-50 Given withings bp cuff and shown how to use it. Coding Level of Care Code 79350 RPM rcrd/trans ea 30 d Diagnoses Obesity (BMI 30-39.9) E66.9
[2023-06-20 13:39] VITALS: BMI 34.3
== END 2023-06-20 13:44 | disposition home or self-care (01) ==
LOC: HO.META 12:34
PROVIDERS: PCP Internal Medicine; Visit Provider Physician Assistant Surgical
DX: E66.9 Obesity, unspecified (principal)

== ENCOUNTER 2023-07-18 14:03 | Outpatient (AMB) | payer BC, SELFPAY ==
--- NOTE | 2023-07-18 12:40 | A.OFFVIS_ITS ---
Intake Intake Visit Reasons: TELEHONE VISIT,metabolic clinic Allergies No Known Allergies Allergy (Verified 01/13/23 14:23) HPI HPI Comments History of Present Illness Details 52 yo male remains in metabolic clinic Has had to work overnights and has had to change the meal plan on those days and He now has a fridge, microwave and mini hot plate at the store so he can cook at the store. he has increased his water to 32-48 oz daily tolerating 2 shakes and 1-2 bars daily and meal. walking 2-3 x per week. normal amount of bolus has decrease from 40-50 to 8-14 units per day. 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 We discussed consistency as a step back to his progress. His blood sugars have significantly improved and he will continue to monitor this. He will text weekly with his weight, blood sugars and blood pressure. Telehealth Telehealth Location of provider rendering services: practice address Location of patient: address on file Patient Identification confirmed using: Name, : Yes Telehealth method: voice only Patient verbally consented to treatment: Yes Patient verbally consented to billing insurance company: Yes Patient informed of any privacy concerns related to visit: Yes Minutes spent on Phone/Video with Pt.: 15 Coding Level of Care Code 40305 RPM each addnl 20 min Diagnoses Obesity (BMI 30-39.9) E66.9
== END 2023-07-18 14:04 | disposition home or self-care (01) ==
LOC: HO.META 14:03
PROVIDERS: PCP Internal Medicine; Visit Provider Physician Assistant Surgical
DX: E66.9 Obesity, unspecified (principal)
CPT/HCPCS: 99499

== ENCOUNTER → 2023-07-18 14:03 | Outpatient (BNVA) | payer BC, SELFPAY | PROVIDERS: PCP Internal Medicine; Visit Provider Physician Assistant Surgical | DX: E66.9 Obesity, unspecified (principal) ==

== ENCOUNTER 2024-01-14 08:49 | Outpatient (AMB) | payer BC, SELFPAY ==
--- NOTE | 2024-01-14 08:50 | MHC.OFFVIS ---
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 In 01/2021, he had ST elevation myocardial infarction of the anterior wall. Subsequently, underwent urgent cardiac catheterization and received LAD stenting. Multiple cardiovascular risk factors including diabetes, hypertension, dyslipidemia. In the past, was not taking care of health because of insurance issues. More recently improved. He stills states that he missed his medications off and on but not too much. No clear cardiac symptoms. 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 Review of Systems Const Denies chills, Denies fatigue, Denies fever(s), Denies frequent falls, Denies weakness, Denies weight gain and Denies weight loss ENT Denies dizziness Card Denies chest pain, Denies leg edema, Denies lightheadedness, Denies palpitations, Denies dyspnea, Denies dyspnea on exertion, Denies orthopnea and Denies other (loss of consciousness) Resp Denies cough, Denies dyspnea and Denies dyspnea on exertion GI Denies hematochezia and Denies change in stool character Musc Denies abnormal gait, Denies muscle weakness, Denies numbness, Denies radiating pain into limb and Denies tingling Neuro Denies abnormal gait, Denies dizziness, Denies frequent falls, Denies numbness, Denies tingling and Denies weakness Endo Denies fatigue and Denies palpitations Physical Exam Vital Signs: Last Vital Signs Pulse 95 01/14/24 08:51 BP 120/78 01/14/24 08:51 BMI result Body Mass Index 37.1 Const General: comfortable and no acute distress Orientation/consciousness: patient oriented x3 HEENT Other: Unremarkable Head: Yes normal to inspection Neck Neck: Yes normal visual inspection Chest Chest palpation & inspection: normal inspection of the chest Resp Auscultation: clear to auscultation bilaterally Cardio Palpation: normal PMI Heart sounds: S1 normal heart sound present, S2 normal heart sound present, no gallops, no murmurs and no rubs GI Palpation (GI): Soft to palpation Back/Spine/Pelvis Other: unremarkable Skin General skin exam: no rashes or lesions noted Neuro General: patient oriented x3 Extrem General: Yes normal to inspection Psych Mental Status: mental status grossly normal Office Procedures EKG Details: EKG with sinus rhythm at 95/Min; no significant ST-T changes and otherwise unremarkable[place] [id number], Complete Assessment & Plan Assessment & Plan (1) Subsequent ST elevation (STEMI) myocardial infarction of anterior wall: Code(s): I22.0 - Subsequent ST elevation (STEMI) myocardial infarction of anterior wall Category: Medical Plan: Cardiac catheterization 01/2021. Status post drug-eluting stent to the mid LAD; also significant diagonal disease. 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 Continue aspirin indefinitely. Continue beta-blockers and high-dose statins. (2) Type 2 diabetes mellitus with unspecified complications: Code(s): E11.8 - Type 2 diabetes mellitus with unspecified complications Category: Medical Plan: Most recent hemoglobin A1c is 8.4%. He is on insulin and Trulicity. (3) Essential hypertension: Code(s): I10 - Essential (primary) hypertension Category: Medical Plan: On carvedilol, lisinopril. No changes. (4) Other and unspecified hyperlipidemia: Code(s): E78.5 - Hyperlipidemia, unspecified Category: Medical Plan: On high-dose statins. According to him, he does miss some doses off and on but not too much. Most recently, LDL on the higher side but prior to that more reasonable. We can recheck. Possibly add Zetia. (5) CKD (chronic kidney disease): Code(s): N18.9 - Chronic kidney disease, unspecified Category: Medical Plan: Last creatinine is 1.31. Orders: Orders LDL Cholesterol Direct Today E78.5 - Hyperlipidemia, unspecified Lipid Panel Today E78.5 - Hyperlipidemia, unspecified Liver Panel Today E78.5 - Hyperlipidemia, unspecified, I25.10 - Atherosclerotic heart disease of [place] coronary artery without angina pectoris Coding Level of Care Code Est Pt Level 4 (46347) Diagnoses Subsequent ST elevation (STEMI) myocardial infarction of anterior wall I22.0 Type 2 diabetes mellitus with unspecified complications E11.8 Essential hypertension I10 Other and unspecified hyperlipidemia E78.5 CKD (chronic kidney disease) N18.9 CPT Codes EKG - CPT: 61287-[id number], Complete ([id number])
[2024-01-14 08:51] VITALS: BP 120/78; PULSE 95; BMI 37.1
== END 2024-01-14 09:17 | disposition home or self-care (01) ==
PROVIDERS: Visit Provider Internal Medicine
DX: I22.0 Subsequent ST elevation (STEMI) myocardial infarction of anterior wall (principal); E11.8 Type 2 diabetes mellitus with unspecified complications; I12.9 Hypertensive chronic kidney disease with stage 1 through stage 4 chronic kidney disease, or unspecified chronic kidney disease; E78.5 Hyperlipidemia, unspecified; N18.9 Chronic kidney disease, unspecified
CPT/HCPCS: 93010; 99214

== ENCOUNTER → 2024-01-14 08:49 | Outpatient (BNVA) | payer BC, SELFPAY | PROVIDERS: Visit Provider Internal Medicine | DX: I12.9 Hypertensive chronic kidney disease with stage 1 through stage 4 chronic kidney disease, or unspecified chronic kidney disease (principal); E11.22 Type 2 diabetes mellitus with diabetic chronic kidney disease; N18.9 Chronic kidney disease, unspecified; E78.5 Hyperlipidemia, unspecified; I25.2 Old myocardial infarction; Z79.899 Other long term (current) drug therapy | CPT/HCPCS: 93005 ==

== ENCOUNTER 2024-03-03 11:13 | Outpatient (REF) | payer BC, SELFPAY ==
[2024-03-03 13:10] LABS: MANUAL DIFF FLAG NO
[2024-03-03 13:42] LABS: Basophils Absolute Auto 0.1 X10*3/uL (0.0-0.2); Basophils Percent Auto 0.9 % (0-2); Eosinophils Absolute Auto 0.1 X10*3/uL (0.0-0.4); Eosinophils Percent Auto 2.4 % (0-4); Hematocrit 38.5 % (42.0-52.0); Hemoglobin 11.6 g/dl (14.0-18.0); Imm Gran Abs Auto 0.02 X10*3/uL (0.00-0.03); Imm Gran Pct Auto 0.3 % (0.0-0.4); Lymphocytes Absolute Auto 1.7 X10*3/uL (1.2-4.9); Lymphocytes Percent Auto 28.9 % (20-40); Mean Corpuscular HGB Conc 30.1 g/dl (31.0-36.0); Mean Corpuscular Hemoglobin 21.4 pg (27.0-33.0); Mean Corpuscular Volume 71.2 fL (80.0-98.0); Mean Platelet Volume 10.1 fL (9.4-12.4); Monocytes Absolute Auto 0.4 X10*3/uL (0.1-1.2); Monocytes Percent Auto 6.9 % (2-11); Neutrophils Absolute Auto 3.5 x10*3/uL (2.0-8.3); Neutrophils Percent Auto 60.6 % (45-73); Platelet Count 368 X10*3/uL (160-400); Red Blood Count 5.41 X10*6/uL (4.60-5.80); Red Cell Distribution Width 15.5 % (11.0-16.0); White Blood Count 5.8 X10*3/uL (4.8-10.8)
[2024-03-03 13:51] LABS: Estimated Average Glucose 154 mg/dL
[2024-03-03 13:57] LABS: Alanine Aminotransferase 20 U/L (0-40); Albumin Level 4.2 g/dL (3.5-5.0); Alkaline Phosphatase 65 U/L (39-117); Aspartate Amino Transferase 16 U/L (5-37); Bilirubin Direct 0.1 mg/dL (0.0-0.5); Bilirubin Total 0.3 mg/dL (0.0-1.0); Cholesterol 166 mg/dL (<200); HDL Cholesterol 35 mg/dL (>40); LDL Cholesterol Calculated 100 mg/dL (<100); Total Protein 7.2 g/dL (6.5-8.0); Triglycerides 156 mg/dL (<150)
[2024-03-03 14:00] LABS: Alanine Aminotransferase 20 U/L (0-40); Albumin Level 4.2 g/dL (3.5-5.0); Alkaline Phosphatase 65 U/L (39-117); Anion Gap 10 (12-20); Aspartate Amino Transferase 14 U/L (5-37); Bilirubin Total 0.3 mg/dL (0.0-1.0); Blood Urea Nitrogen 24 mg/dL (9-16); Calcium 9.5 mg/dL (8.4-10.2); Carbon Dioxide 25 mmol/L (22-29); Chloride 109 mmol/L (96-108); Estimated Glomerular Filt Rate 50; Glucose Random 123 mg/dL (60-115); Iron 28 mcg/dL (45-160); Percent Iron Saturation 7 % (15-50); Potassium 4.5 mmol/L (3.3-5.1); Sodium 139 mmol/L (135-145); Total Iron Binding Capacity 375 mcg/dL (228-428); Total Protein 7.1 g/dL (6.5-8.0); Unsaturated Iron Binding 347 ug/dL
[2024-03-03 14:41] LABS: Microalbum/Creatinine Ratio Ur 24.6 ug/mg cr (<30)
[2024-03-05 08:18] LABS: LDL Cholesterol Direct 111 mg/dL (<100)
== END 2024-03-03 11:14 | disposition home or self-care (01) ==
LOC: HO.10HDL 11:13
PROVIDERS: Referring Provider Internal Medicine; Visit Provider Internal Medicine
DX: E11.9 Type 2 diabetes mellitus without complications (principal); I25.10 Atherosclerotic heart disease of native coronary artery without angina pectoris; E78.5 Hyperlipidemia, unspecified
CPT/HCPCS: 36415; 80053; 80061; 80076; 82043; 82248; 82570; 83036; 83540; 83721; 85025

== ENCOUNTER 2024-07-14 08:14 | Outpatient (AMB) | payer BC, SELFPAY ==
[2024-07-14 08:28] VITALS: BP 124/70; PULSE 92; BMI 37.4
--- NOTE | 2024-07-14 08:28 | MHC.OFFVIS ---
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 In 01/2021, he had ST elevation myocardial infarction of the anterior wall. Subsequently, underwent urgent cardiac catheterization and received LAD stenting. Multiple cardiovascular risk factors including diabetes, hypertension, dyslipidemia. In the past, was not taking care of health because of insurance issues. It is improved now but he states he is still forgets to take meds off and on due to his work schedule. No clear-cut cardiac symptoms like angina. [facility] Medical History HTN (hypertension) Cardiomyopathy Myocardial infarction CAD (coronary artery disease) Hyperlipemia Diabetes mellitus Surgical History History of heart artery stent (~01/2021) Family History (Updated 07/14/24 @ 08:30 by Heidy Manzanares CMA) Father Cancer High cholesterol Mother High cholesterol Heart disease Maternal Grandmother Pacemaker Maternal Grandfather Heart attack Maternal Uncle Heart attack Brother Pacemaker Social History (Updated 07/14/24 @ 08:30 by Heidy Manzanares CMA) Alcohol intake: current Alcohol intake frequency: holidays/special occasions only Patient Tobacco Use Status: Never used Tobacco Current occupational status: employed 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 Review of Systems Const Denies chills, Denies fatigue, Denies fever(s), Denies weight gain and Denies weight loss ENT Denies dizziness Card Reports chest pain, Denies leg edema, Denies lightheadedness, Reports palpitations, Reports dyspnea on exertion, Denies orthopnea and Denies other Resp Denies cough and Reports dyspnea on exertion GI Denies hematochezia and Denies change in stool character Musc Denies abnormal gait, Denies muscle weakness, Denies numbness, Denies radiating pain into limb and Denies tingling Neuro Denies abnormal gait, Denies dizziness, Denies numbness and Denies tingling Endo Denies fatigue and Reports palpitations Physical Exam Vital Signs: Last Vital Signs Pulse 92 07/14/24 08:28 BP 124/70 07/14/24 08:28 BMI result Body Mass Index 37.4 Const General: comfortable and no acute distress Orientation/consciousness: patient oriented x3 HEENT Other: Unremarkable Head: Yes normal to inspection Neck Neck: Yes normal visual inspection Chest Chest palpation & inspection: normal inspection of the chest Resp Auscultation: clear to auscultation bilaterally Cardio Palpation: normal PMI Heart sounds: S1 normal heart sound present, S2 normal heart sound present, no gallops, no murmurs and no rubs GI Palpation (GI): Soft to palpation Back/Spine/Pelvis Other: unremarkable Skin General skin exam: no rashes or lesions noted Neuro General: patient oriented x3 Extrem General: Yes normal to inspection Psych Mental Status: mental status grossly normal Assessment & Plan Assessment & Plan (1) Subsequent ST elevation (STEMI) myocardial infarction of anterior wall: Code(s): I22.0 - Subsequent ST elevation (STEMI) myocardial infarction of anterior wall Category: Medical Plan: Cardiac catheterization 01/2021. Status post drug-eluting stent to the mid LAD; also significant diagonal disease. 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 Continue aspirin indefinitely. Continue beta-blockers and high-dose statins. (2) Type 2 diabetes mellitus with unspecified complications: Code(s): E11.8 - Type 2 diabetes mellitus with unspecified complications Category: Medical Plan: Most recent hemoglobin A1c is 7%. He is on insulin and Trulicity. (3) Essential hypertension: Code(s): I10 - Essential (primary) hypertension Category: Medical Plan: On carvedilol, lisinopril. No changes. (4) Other and unspecified hyperlipidemia: Code(s): E78.5 - Hyperlipidemia, unspecified Category: Medical Plan: On statins Zetia but lipids are still higher than ideal. Try Repatha if it is affordable. (5) CKD (chronic kidney disease): Code(s): N18.9 - Chronic kidney disease, unspecified Category: Medical Plan: Stable. Creatinine is 1.48. Medications: New evolocumab (Repatha SureClick) 140 mg subcut Q2W 7 mL 1RF 3 months Coding Level of Care Code Est Pt Level 4 (79394) Diagnoses Subsequent ST elevation (STEMI) myocardial infarction of anterior wall I22.0 Type 2 diabetes mellitus with unspecified complications E11.8 Essential hypertension I10 Other and unspecified hyperlipidemia E78.5 CKD (chronic kidney disease) N18.9
== END 2024-07-14 08:49 | disposition home or self-care (01) ==
PROVIDERS: PCP Internal Medicine; Visit Provider Internal Medicine
DX: I22.0 Subsequent ST elevation (STEMI) myocardial infarction of anterior wall (principal); E11.8 Type 2 diabetes mellitus with unspecified complications; I12.9 Hypertensive chronic kidney disease with stage 1 through stage 4 chronic kidney disease, or unspecified chronic kidney disease; E78.5 Hyperlipidemia, unspecified; N18.9 Chronic kidney disease, unspecified
CPT/HCPCS: 99214

== ENCOUNTER → 2024-07-14 08:14 | Outpatient (BNVA) | payer BC, SELFPAY | PROVIDERS: PCP Internal Medicine; Visit Provider Internal Medicine ==

== ENCOUNTER 2025-01-03 08:56 | Outpatient (AMB) | payer BC, SELFPAY ==
[2025-01-03 09:06] VITALS: BP 140/80; PULSE 82; BMI 37.8
--- NOTE | 2025-01-03 09:06 | MHC.OFFVIS ---
Vital Signs 01/03/25 09:06 Height 5 ft 9 in Weight 255 lb 11.779 oz BMI 37.8 BP 140/80 H Blood Pressure Location Lt brachial Position Sitting Pulse 82 Pulse Source Monitor Intake Visit Reasons: 6 mth f/up Allergies No Known Allergies Allergy (Verified 01/13/23 14:23) Medication List - Last Reconciled 01/03/25 by Hari Reich MD aspirin 81 mg PO DAILY atorvastatin 80 mg PO BEDTIME carvedilol 6.25 mg PO BID dulaglutide (Trulicity) 1.5 mg subcut QWEEK evolocumab (Repatha SureClick) 140 mg subcut Q2W 3 months ezetimibe 10 mg PO DAILY insulin aspart U-100 subcut TID insulin lispro (Humalog U-100 Insulin) subcut isosorbide mononitrate ER 60 mg PO DAILY lisinopril 5 mg PO DAILY nitroglycerin 0.4 mg sublingual Q5M PRN HPI Comments Details: Srinath is here for follow up regarding coronary disease. In 01/2021, he had ST elevation myocardial infarction of the anterior wall. Subsequently, underwent urgent cardiac catheterization and LAD stenting. Multiple cardiovascular risk factors including diabetes, hypertension, dyslipidemia. In the past, was not taking care of health because of insurance issues. Improved in the last couple of years. For the most part, it seems that he is doing okay but sometimes he feels chest tightness when he is at work and at other times during physical activity. That could be angina. However, no persistent episodes or rest pain episodes. [facility] Medical History HTN (hypertension) Cardiomyopathy Myocardial infarction CAD (coronary artery disease) Hyperlipemia Diabetes mellitus Surgical History History of heart artery stent (~01/2021) Family History Father Cancer High cholesterol Mother High cholesterol Heart disease Maternal Grandmother Pacemaker Maternal Grandfather Heart attack Maternal Uncle Heart attack Brother Pacemaker Social History Alcohol intake: current Alcohol intake frequency: holidays/special occasions only Patient Tobacco Use Status: Never used Tobacco Current occupational status: employed 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 Review of Systems Const Denies weakness ENT Denies dizziness Card Reports chest pain, Denies chest pain with activity, Denies syncope, Denies rapid heart rate, Denies pedal edema, Denies edema, Denies leg edema, Denies lightheadedness, Denies palpitations, Denies dyspnea, Denies dyspnea on exertion and Denies orthopnea Resp Denies cough, Denies dyspnea and Denies dyspnea on exertion GI Denies hematochezia and Denies change in stool character Musc Denies abnormal gait, Reports myalgias, Denies muscle cramps, Denies muscle weakness, Denies numbness, Denies radiating pain into limb and Denies tingling Neuro Denies abnormal gait, Denies dizziness, Denies syncope, Denies numbness, Denies tingling and Denies weakness Endo Denies palpitations Physical Exam Vital Signs: Last Vital Signs Pulse 82 01/03/25 09:06 BP 140/80 H 01/03/25 09:06 BMI result Body Mass Index 37.8 Const General: comfortable and no acute distress Orientation/consciousness: patient oriented x3 HEENT Other: Unremarkable Head: Yes normal to inspection Neck Neck: Yes normal visual inspection Chest Chest palpation & inspection: normal inspection of the chest Resp Auscultation: clear to auscultation bilaterally Cardio Palpation: normal PMI Heart sounds: S1 normal heart sound present, S2 normal heart sound present, no gallops, no murmurs and no rubs GI Palpation (GI): Soft to palpation Back/Spine/Pelvis Other: unremarkable Skin General skin exam: no rashes or lesions noted Neuro General: patient oriented x3 Extrem General: Yes normal to inspection Psych Mental Status: mental status grossly normal Office Procedures EKG Details: EKG with underlying sinus rhythm at 82/Min; no ischemic changes; [place]. [id number], Complete Assessment & Plan Assessment & Plan (1) Subsequent ST elevation (STEMI) myocardial infarction of anterior wall: Code(s): I22.0 - Subsequent ST elevation (STEMI) myocardial infarction of anterior wall Category: Medical Plan: Cardiac catheterization 01/2021. Status post drug-eluting stent to the mid LAD; also significant diagonal disease. 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 Due to complaints of chest pain, we will repeat his cardiac workup including echocardiogram/stress test. In the interim, continue aspirin, beta-blockers, long-acting nitrates and statins. Emergency precautions as necessary. Otherwise, we will complete the workup as above. (2) Type 2 diabetes mellitus with unspecified complications: Code(s): E11.8 - Type 2 diabetes mellitus with unspecified complications Category: Medical Plan: Most recent hemoglobin A1c is 7%. He is on insulin and Trulicity. (3) Essential hypertension: Code(s): I10 - Essential (primary) hypertension Category: Medical Plan: On carvedilol, lisinopril. Slightly high blood pressure today but he states it is because of his work schedule. Previously, normal range. No changes made today. (4) Other and unspecified hyperlipidemia: Code(s): E78.5 - Hyperlipidemia, unspecified Category: Medical Plan: He is on statins, Zetia. He just started Repatha this month. We will need lipid checks in due course. (5) CKD (chronic kidney disease): Code(s): N18.9 - Chronic kidney disease, unspecified Category: Medical Plan: Stable. Creatinine is 1.48. Orders: Orders CA stress test Today I25.5 - Ischemic cardiomyopathy, R07.2 - Precordial pain CA echo transthoracic complete Today I25.5 - Ischemic cardiomyopathy NM cardiolite stress test Today I25.5 - Ischemic cardiomyopathy, R07.2 - Precordial pain Coding Level of Care Code Est Pt Level 4 (41017) Complex EM visit Add On G2211 Diagnoses Subsequent ST elevation (STEMI) myocardial infarction of anterior wall I22.0 Type 2 diabetes mellitus with unspecified complications E11.8 Essential hypertension I10 Other and unspecified hyperlipidemia E78.5 CKD (chronic kidney disease) N18.9 CPT Codes EKG - CPT: 79855-[id number], Complete ([id number])
== END 2025-01-03 09:31 | disposition home or self-care (01) ==
LOC: HO.HCS 08:56
PROVIDERS: PCP Internal Medicine; Visit Provider Internal Medicine
DX: I22.0 Subsequent ST elevation (STEMI) myocardial infarction of anterior wall (principal); E11.8 Type 2 diabetes mellitus with unspecified complications; I12.9 Hypertensive chronic kidney disease with stage 1 through stage 4 chronic kidney disease, or unspecified chronic kidney disease; E78.5 Hyperlipidemia, unspecified; N18.9 Chronic kidney disease, unspecified
CPT/HCPCS: 93010; 99214

== ENCOUNTER → 2025-01-03 08:56 | Outpatient (BNVA) | payer BC, SELFPAY | PROVIDERS: PCP Internal Medicine; Visit Provider Internal Medicine | DX: I25.2 Old myocardial infarction (principal); E11.22 Type 2 diabetes mellitus with diabetic chronic kidney disease; I12.9 Hypertensive chronic kidney disease with stage 1 through stage 4 chronic kidney disease, or unspecified chronic kidney disease; N18.9 Chronic kidney disease, unspecified; E11.8 Type 2 diabetes mellitus with unspecified complications; E78.5 Hyperlipidemia, unspecified | CPT/HCPCS: 93005 ==

== ENCOUNTER → 2025-01-28 07:52 | Outpatient (REF) | payer BC, SELFPAY ==
--- NOTE | 2025-01-28 07:55 | CA_ITS ---
Transthoracic Echocardiogram Patient (Last, First, Middle): Srinath Penn T Gender: Male Date of : 1970 Age: 54 Procedure Date: 01/28/2025 Procedure Type: Transthoracic Echocardiogram Location: OP Height: 175. cm Weight: 113.4 kg BSA: 2.27 m2 Heart Rate: 83 bpm BP: 165 / 95 mmHg General Manager In Training: GALE Referring MD: Hari Reich MD Symptoms: I25.5 - Ischemic cardiomyopathy Study Quality: Fair ECG Rhythm: Sinus Conclusions: - The left ventricular systolic function is mildly decreased. The visually estimated ejection fraction is between 40-45%. - The basal inferior, apical septum, mid inferoseptal, and mid inferolateral segments are hypokinetic. - No obvious valvular pathology seen on this study. Findings Left Ventricle Normal left ventricular cavity size. There is mildly increased left ventricular wall thickness. The left ventricular systolic function is mildly decreased. The visually estimated ejection fraction is between 40-45%. There is evidence of regional wall motion abnormalities. Evidence suggests grade I (mild) diastolic dysfunction. LV peak GLS -10%. Wall Motion Rest Echo Findings The basal inferior, apical septum, mid inferoseptal, and mid inferolateral segments are hypokinetic. Right Ventricle Normal right ventricular cavity size and systolic function. Atria Both atria are normal in size. Aortic Valve There is a normal trileaflet aortic valve. There is mild calcification of the aortic valve. There is no aortic valve stenosis. There is no aortic valve regurgitation. Mitral Valve The mitral valve appears normal. There is trace mitral valve regurgitation. There is no mitral valve stenosis. Pulmonic Valve The pulmonic valve is likely normal. Tricuspid Valve There is trace tricuspid valve regurgitation. There is no evidence of pulmonary hypertension. Great Vessels The asc aorta and aortic arch are normal in size. Venous The inferior vena cava is normal in size and collapses greater than 50% with inspiration. Pericardium/Pleural There is no evidence of pericardial effusion. Prior Study Comparison Changes noted compared to prior study dated: 04/24/2021. LVEF lower; wall motion abnormalities more prominent. Recommendations, Care & Conclusions No obvious valvular pathology seen on this study. Measurements 2D Linear Measurements IVSd: 1.27 0.6-0.9/0.6-1.0 cm LVIDd: 3.85 3.9-5.3/4.2-5.9 cm LVIDd Index: 1.70 2.4-3.2/2.2-3.1 cm/m2 LVIDs: 3.05 2.0-3.6 cm LVPWd: 1.09 0.7-1.1 cm LA Diam: 3.20 2.7-3.8/3.0-4.0 cm LAIDs Index: 1.41 1.5-2.3 cm/m2 LV Mass: 189.71 67-162/88-224 g LV Mass Index: 83.57 43-95/49-115 g/m2 LVOT Diam: 2.00 3.0+(-)1.3 cm 2D Systolic Function EF 4C: 41.60 >55% EF 2C: 57.10 >55% EF BiP: 50.20 >55% Mitral Valve MV Pk E: 0.57 MV PK A: 0.83 MV Decel Time: 196.00 E/A: 0.70 E'Lateral: 4.68 E'Medial: 4.35 E/E' Med: 13.00 E/E' Lat: 12.10 PHT: 57.00 MVA PHT: 3.86 Decel [place]: 2.88 Aortic Valve AoV Pk Noah: 1.07 AoV Mn Noah: 0.82 AoV VTI: 0.20 AoV Pk Grad: 5.00 Aov Mn Grad: 3.00 CELIA Cont.VTI: 2.84 LVOT LVOT Pk Noah: 0.92 LVOT Mn Noah: 0.67 LVOT VTI: 0.18 LVOT Pk Grad: 3.00 LVOT Mn Grad: 2.00 LVOT Diam: 2.00 LVOT Area: 3.14 Diastolic Function MV Pk E: 0.57 MV Pk A: 0.83 E/A: 0.70 E'Medial: 4.35 E/E' Med: 13.00 E' Laterial: 4.68 E/E' Lat: 12.10 Right Ventricle TAPSE (mm): 20.90 TVS' Noah: 14.80 Tricuspid Valve TR Pk Noah: 1.85 TR Pk Grad: 14.00 RA Press: 3.00 RVSP: 17.00 Great Vessels Aorta Sinus of Valsalva: 3.50 2.0-3.5 cm Ao Asc: 3.40 2.1-3.4 cm Ao Arch: 2.70 Pulmonary Valve PV Pk Noah: 0.83 Peak PV Grad: 3.00 Updated in Other Vendor System with Status of Final Hari Reich MD electronically signed on 01/30/2025 2:42:21 PM with status of Final
--- OUTSIDE RECORDS SUMMARY | 2025-01-28 07:56 | XMS_ITS | Patient Health Record ---
Author Organization [facility] Address [address] [place] [address] Care Team Providers Care Construction Project Administrator Name Role Phone Mak Hernandez MD Primary Care Provider Unavaila Ryan Armstrong Jr Unavailable Reason For Referral No Information Medications Medication SIG (Take, Route, Frequency, Duration) Notes Start Date End Date Status MiraLax (colon prep) 17 GM/SCOOP mixed with Gatorade or Crystal Light Orally begin at 5:00 p.m. the day before the procedure for 1 day 01/24/2022 Active Brilinta 90 MG Oral for 90 Act enrique HumaLOG 100 UNIT/ML Injection for 90 Active Carvedilol 6.25 MG Oral for 90 Active MiraLax (colon prep) 17 GM/SCOOP mixed with Gatorade or Crystal Light Orally begin at 5:00 p.m. the day before the procedure for 1 day 04/04/2022 Active Lisinopril 5 MG Oral for 90 Ac tive Trulicity 1.5 MG/0.5ML Subcutaneous for 84 Active Atorvastatin Calcium 80 MG Oral for 90 Active Isosorbide Mononitrate ER 30 MG Oral for 90 Active Aspirin 81 Active Immunizations Vaccine Route Administration Date Status Comme nts Influenza Unknown 05/23/2021 Administered Social History Tobacco Use: Social History Observation Description Date Details (start date - stop date) Former Smoker NA - NA Tobacco Use/Smoking Question Answer Notes Patient is a former smoker How long has it been since you last smoked? > 10 years Alcohol Screen Question Answer Notes Did you have a drink contain ing alcohol in the past year? Yes How often did you have a dri nk containing alcohol in the past year? Never (0 point) How many drinks did you have on a typical day when you were drinking in the past year? 1 or 2 drinks (0 point) How often did you have 6 or more drinks on one occasion in the past year? 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 skilled nursing use of antiplatelet drug (Z79.02) Active confirmed Plan Of Treatment Future Test Test Name Order Date COLONOSCOPY 01/24/2022 COLONOSCOPY 04/04/2022 Insurance Providers Payer Name Payer Address Payer Phone Subscriber Number Group Number Insured Name Patient Relationship to Insured Coverage Start Date Coverage End Date [facility] [address] [place] [address] [id number] JAY ROD Self - patient is the insured Medical (General) History Medical History History ICD Code diabetes mellitus Coronary artery disease with history of [place] 02/09 hypercholesterolemia Surgical History Surgery Date(Month/Year) TORIE stent placement 02/17/21
== END ==
LOC: HO.CARD 07:52
PROVIDERS: Visit Provider Internal Medicine
DX: I25.5 Ischemic cardiomyopathy (principal)
CPT/HCPCS: 93306

== ENCOUNTER → 2025-01-28 07:55 | Outpatient (BNV) | payer BC, SELFPAY | PROVIDERS: Visit Provider Internal Medicine | DX: I35.8 Other nonrheumatic aortic valve disorders (principal); I42.8 Other cardiomyopathies; I25.5 Ischemic cardiomyopathy | CPT/HCPCS: 93306; 93356 ==

== ENCOUNTER 2025-02-17 14:06 | Outpatient (REF) | payer BC, SELFPAY ==
--- OUTSIDE RECORDS SUMMARY | 2025-02-17 14:20 | XMS_ITS | Patient Health Record ---
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) Active confirmed Plan Of Treatment Future Test Test Name Order Date COLONOSCOPY 01/24/2022 COLONOSCOPY 04/04/2022 Insurance Providers Payer Name Payer Address Payer Phone Subscriber Number Group Number Insured Name Patient Relationship to Insured Coverage Start Date Coverage End Date [facility] [address] [place] [address] [id number] JAY ROD Self - patient is the insured Medical (General) History Medical History History ICD Code diabetes mellitus Coronary artery disease with history of [place] 02/09 hypercholesterolemia Surgical History Surgery Date(Month/Year) TORIE stent placement 02/17/21
[2025-02-17 15:03] LABS: Hematocrit 38.2 % (42.0-52.0); Hemoglobin 11.6 g/dl (14.0-18.0); Mean Corpuscular HGB Conc 30.4 g/dl (31.0-36.0); Mean Corpuscular Volume 72.3 fL (80.0-98.0); Mean Platelet Volume 9.6 fL (9.4-12.4); Platelet Count 288 X10*3/uL (160-400); Red Blood Count 5.28 X10*6/uL (4.60-5.80); Red Cell Distribution Width 16.2 % (11.0-16.0); White Blood Count 7.3 X10*3/uL (4.8-10.8)
[2025-02-17 15:23] LABS: Anion Gap 13 (12-20); Blood Urea Nitrogen 26 mg/dL (9-16); Calcium 9.2 mg/dL (8.4-10.2); Carbon Dioxide 24 mmol/L (22-29); Chloride 106 mmol/L (96-108); Estimated Glomerular Filt Rate 52; Glucose Random 182 mg/dL (60-115); Potassium 4.5 mmol/L (3.3-5.1); Sodium 138 mmol/L (135-145)
[2025-02-17 15:29] LABS: Prothrombin Time 11.2 SEC (10.9-12.4)
== END 2025-02-17 14:07 | disposition home or self-care (01) ==
LOC: HO.LAB 14:06
DX: R93.1 Abnormal findings on diagnostic imaging of heart and coronary circulation (principal); Z79.01 Long term (current) use of anticoagulants
CPT/HCPCS: 36415; 80048; 85027; 85610

== ENCOUNTER → 2025-03-03 23:59 | Outpatient (BNV) | payer BC, SELFPAY | PROVIDERS: Visit Provider Internal Medicine Cardiovascular Disease | DX: I20.89 Other forms of angina pectoris (principal); I42.9 Cardiomyopathy, unspecified | CPT/HCPCS: 92928; 93458; 99152 ==

== ENCOUNTER 2025-03-14 13:28 | Outpatient (AMB) | payer BC, SELFPAY ==
--- NOTE | 2025-03-14 13:31 | A.OFFVIS_ITS ---
Vital Signs 03/14/25 13:32 Height 5 ft 9 in Weight 257 lb 15.053 oz BMI 38.1 BP 124/78 Blood Pressure Location Lt brachial Position Sitting Pulse 96 Intake Visit Reasons: r/s 02/02/25 4 wks f/u s/p mibi/echo Intake Note: 4 week follow-up after mibi and echo c/o sob when laying down Cardiac Nurse Specialist: Cardiac Nurse Specialist Present Accompanied by: Spouse Allergies No Known Allergies Allergy (Verified 01/13/23 14:23) Medication List - Last Reconciled 03/14/25 by Hari Reich MD aspirin 81 mg PO DAILY atorvastatin 80 mg PO BEDTIME carvedilol 6.25 mg PO BID dulaglutide (Trulicity) 1.5 mg subcut QWEEK evolocumab (Repatha SureClick) 140 mg subcut Q2W 3 months ezetimibe 10 mg PO DAILY insulin aspart U-100 subcut TID insulin lispro (Humalog U-100 Insulin) subcut isosorbide mononitrate ER 60 mg PO DAILY lisinopril 5 mg PO DAILY nitroglycerin 0.4 mg sublingual Q5M PRN ticagrelor (Brilinta) 90 mg PO BID HPI Comments Details: Srinath is here for follow up regarding coronary disease. In 01/2021, he had ST elevation myocardial infarction of the anterior wall. Subsequently, underwent urgent cardiac catheterization and LAD stenting. More recently, again having anginal symptoms and that led to PCI to distal RCA/PDA and angioplasty of PDA/PLV. He is mostly okay but still gets some chest pains. Random occurrence. Not clear if it is angina or something else. Sometimes, he wakes up from sleep gasping and not clear if it is from obstructive sleep apnea or not. Multiple cardiovascular risk factors including diabetes, hypertension, dyslipidemia. In the past, not taking care of herself because of insurance but more compliant in the last few years. Otherwise, getting along okay. [facility] Medical History HTN (hypertension) Cardiomyopathy Myocardial infarction CAD (coronary artery disease) Hyperlipemia Diabetes mellitus Surgical History History of heart artery stent (~01/2021) Family History Father Cancer High cholesterol Mother High cholesterol Heart disease Maternal Grandmother Pacemaker Maternal Grandfather Heart attack Maternal Uncle Heart attack Brother Pacemaker Social History Alcohol intake: current Alcohol intake frequency: holidays/special occasions only Patient Tobacco Use Status: Never used Tobacco Current occupational status: employed 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 Review of Systems Const Denies chills, Denies fatigue, Denies fever(s), Denies frequent falls, Denies weakness, Denies weight gain and Denies weight loss ENT Denies dizziness Card Denies chest pain, Denies leg edema, Denies lightheadedness, Denies palpitations, Denies dyspnea, Denies dyspnea on exertion, Denies orthopnea and Denies other (loss of consciousness) Resp Denies cough, Denies dyspnea and Denies dyspnea on exertion GI Denies hematochezia and Denies change in stool character Musc Denies abnormal gait, Denies muscle weakness, Denies numbness, Denies radiating pain into limb and Denies tingling Neuro Denies abnormal gait, Denies dizziness, Denies frequent falls, Denies numbness, Denies tingling and Denies weakness Endo Denies fatigue and Denies palpitations Physical Exam Vital Signs: Last Vital Signs Pulse 96 03/14/25 13:32 BP 124/78 03/14/25 13:32 BMI result Body Mass Index 38.1 Const General: comfortable and no acute distress Orientation/consciousness: patient oriented x3 HEENT Other: Unremarkable Head: Yes normal to inspection Neck Neck: Yes normal visual inspection Chest Chest palpation & inspection: normal inspection of the chest Resp Auscultation: clear to auscultation bilaterally Cardio Palpation: normal PMI Heart sounds: S1 normal heart sound present, S2 normal heart sound present, no gallops, no murmurs and no rubs GI Palpation (GI): Soft to palpation Back/Spine/Pelvis Other: unremarkable Skin General skin exam: no rashes or lesions noted Neuro General: patient oriented x3 Extrem General: Yes normal to inspection Psych Mental Status: mental status grossly normal Assessment & Plan Assessment & Plan (1) Atherosclerotic cardiovascular disease: Code(s): I25.10 - Atherosclerotic heart disease of [place] coronary artery without angina pectoris Category: Medical Plan: Cardiac catheterization reviewed from 02/2025-patent proximal LAD stent with minimal ISR. 80% ostial PDA stenosis, culprit lesion, status post PCI. Balloon inflation of PDA/PLV. Long-term aspirin. Brilinta for at least one year. Continue beta-blockers, long-acting nitrates. Use sublingual nitrates as necessary. We discussed about cardiac rehabilitation but he states he will not have time be cause of his job. He can at least incorporate walking and other physical activities into his daily life. (2) Type 2 diabetes mellitus with unspecified complications: Code(s): E11.8 - Type 2 diabetes mellitus with unspecified complications Category: Medical Plan: Most recent hemoglobin A1c is 7%. He is on insulin and Trulicity. (3) Essential hypertension: Code(s): I10 - Essential (primary) hypertension Category: Medical Plan: On carvedilol, lisinopril. Stable. (4) Other and unspecified hyperlipidemia: Code(s): E78.5 - Hyperlipidemia, unspecified Category: Medical Plan: On statins, Zetia, Repatha. Check lipids. (5) CKD (chronic kidney disease): Code(s): N18.9 - Chronic kidney disease, unspecified Category: Medical Plan: Stable. Creatinine is 1.42. Plan Discussion Notes I discussed the possibility of sleep apnea with the patient and recommended a home sleep study to confirm the diagnosis. We talked about the importance of managing diabetes and hyperlipidemia to prevent further cardiovascular issues. I advised the patient to continue his current medications and addressed the cost issues related to his cholesterol-lowering injections. We also discussed the need for regular physical activity and the importance of monitoring blood sugar levels during exercise. Patient was informed and verbally consented to the use of an ambient scribe for clinic note documentation during this visit. Orders: Orders Lipid Panel Today E78.5 - Hyperlipidemia, unspecified, I25.10 - Atherosclerotic heart disease of [place] coronary artery without angina pectoris RT home sleep study Today G47.33 - Obstructive sleep apnea (adult) (pediatric), I25.10 - Atherosclerotic heart disease of [place] coronary artery without angina pectoris Patient Instructions: - Complete a home sleep study as scheduled. - Continue taking diabetes medication and monitor blood sugar levels regularly. - Continue cholesterol-lowering injections and address any cost issues with the pharmacy. - Engage in regular physical activity and monitor blood sugar during exercise. - Complete a fasting cholesterol blood test before the next visit. Coding Level of Care Code Est Pt Level 4 (68636) Complex EM visit Add On G2211 Diagnoses Atherosclerotic cardiovascular disease I25.10 Type 2 diabetes mellitus with unspecified complications E11.8 Essential hypertension I10 Other and unspecified hyperlipidemia E78.5 CKD (chronic kidney disease) N18.9
[2025-03-14 13:32] VITALS: BP 124/78; PULSE 96; BMI 38.1
--- OUTSIDE RECORDS SUMMARY | 2025-03-14 14:49 | XMS_ITS | Patient Health Record ---
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) Active confirmed Plan Of Treatment Future Test Test Name Order Date COLONOSCOPY 01/24/2022 COLONOSCOPY 04/04/2022 Insurance Providers Payer Name Payer Address Payer Phone Subscriber Number Group Number Insured Name Patient Relationship to Insured Coverage Start Date Coverage End Date [facility] [address] [place] [address] [id number] JAY ROD Self - patient is the insured Medical (General) History Medical History History ICD Code diabetes mellitus Coronary artery disease with history of [place] 02/09 hypercholesterolemia Surgical History Surgery Date(Month/Year) TORIE stent placement 02/17/21
== END 2025-03-14 14:18 | disposition home or self-care (01) ==
LOC: HO.HCS 13:28
PROVIDERS: PCP Internal Medicine; Visit Provider Internal Medicine
DX: I25.10 Atherosclerotic heart disease of native coronary artery without angina pectoris (principal); E11.8 Type 2 diabetes mellitus with unspecified complications; I12.9 Hypertensive chronic kidney disease with stage 1 through stage 4 chronic kidney disease, or unspecified chronic kidney disease; E78.5 Hyperlipidemia, unspecified; N18.9 Chronic kidney disease, unspecified
CPT/HCPCS: 99214

== ENCOUNTER → 2025-06-27 09:40 | Outpatient (REF) | payer BC, SELFPAY ==
--- OUTSIDE RECORDS SUMMARY | 2025-06-27 11:06 | XMS_ITS | Patient Health Record ---
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) Active confirmed Problem 916212756068276 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 (Z79.02) Active confirmed Plan Of Treatment Future Test Test Name Order Date COLONOSCOPY 01/24/2022 COLONOSCOPY 04/04/2022 Insurance Providers Payer Name Payer Address Payer Phone Subscriber Number Group Number Insured Name Patient Relationship to Insured Coverage Start Date Coverage End Date [facility] [address] [place] [address] [id number] JAY ROD Self - patient is the insured Medical (General) History Medical History History ICD Code diabetes mellitus Coronary artery disease with history of [place] 02/09 hypercholesterolemia Surgical History Surgery Date(Month/Year) TORIE stent placement 02/17/21
== END ==
LOC: HO.SL 09:40
PROVIDERS: Visit Provider Internal Medicine
DX: G47.33 Obstructive sleep apnea (adult) (pediatric) (principal); I25.10 Atherosclerotic heart disease of native coronary artery without angina pectoris
CPT/HCPCS: 95806

== ENCOUNTER → 2025-06-27 09:53 | Outpatient (BNV) | payer BC, SELFPAY | PROVIDERS: Visit Provider Internal Medicine | DX: G47.33 Obstructive sleep apnea (adult) (pediatric) (principal) | CPT/HCPCS: 95806 ==

== ENCOUNTER 2025-08-24 15:01 | Outpatient (AMB) | payer BC, SELFPAY ==
[2025-08-24 15:05] VITALS: BP 128/80; PULSE 104; O2SAT 100; BMI 37.6
--- NOTE | 2025-08-24 15:05 | MHC.OFFVIS ---
Vital Signs 08/24/25 15:05 Height 5 ft 9 in Weight 254 lb 10.142 oz BMI 37.6 BP 128/80 Blood Pressure Location Lt brachial Position Sitting Pulse 104 H Pulse Source Pulse Oximeter Pulse Oximetry (%) 100 Oxygen Delivery Method Room Air Intake Visit Reasons: Obstructive sleep apnea Intake Note: pt is here as a new patient for follow up of sleep study, hx of heart attack 4 years ago. 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 Required: No Allergies No Known Allergies Allergy (Verified 08/24/25 15:11) Medication List - Last Reconciled 08/24/25 by Hunter Parkinson MD aspirin 81 mg PO DAILY atorvastatin 80 mg PO BEDTIME carvedilol 6.25 mg PO BID dulaglutide (Trulicity) 1.5 mg subcut QWEEK evolocumab (Repatha SureClick) 140 mg subcut Q2W 3 months ezetimibe 10 mg PO DAILY insulin aspart U-100 subcut TID insulin lispro (Humalog U-100 Insulin) subcut isosorbide mononitrate ER 60 mg PO DAILY lisinopril 5 mg PO DAILY nitroglycerin 0.4 mg sublingual Q5M PRN ticagrelor (Brilinta) 90 mg PO BID Do you need a note to return to daycare/school/sports/work: No HPI HPI Obstructive sleep apnea: Details: This 54 years old gentleman is very pleasant, had recent home-based sleep study which is strongly positive for sleep apnea, and has been referred for management of his sleep apnea. He has been grossly overweight. Join the weight management program a few years ago, he tried the dietary portion of the management, never considered for bariatric surgery. And gave up after 2 years because it was not making any difference in his weight. Within the last 3-4 years he had a heart attack, and has had angioplasty with 2 stents. He had abnormal echocardiogram, indicating ischemic cardiomyopathy. He is being treated for diabetes mellitus, hypertension and hyperlipidemia. 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 He say is he remains very active and on his feet during the daytime. At night he comes home about 6-7 p.m., he goes to sleep at 22:00 and wakes up at 5 or 06:00. His sleep is light, he is not aware of if he snores or not. He wakes up a few times from the sleep to go to the bathroom. When he wakes up in the morning he does feel tired and un-rested . During the daytime he is so much active and remains on his feet that he does not have a chance to sit down and relax. At night he sleeps by himself mostly in supine position. 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 His inspector water pollution control Dr. Reich has ordered the sleep study which was performed on 06/27/2025, it is grossly abnormal as will be described below. [facility] Medical History (Updated 08/24/25 @ 16:56 by Hunter Parkinson MD) Nocturnal hypoxemia MADDIE (obstructive sleep apnea) HTN (hypertension) Cardiomyopathy Myocardial infarction CAD (coronary artery disease) Hyperlipemia Diabetes mellitus Surgical History History of heart artery stent (~01/2021) Family History Father Cancer High cholesterol Mother High cholesterol Heart disease Maternal Grandmother Pacemaker Maternal Grandfather Heart attack Maternal Uncle Heart attack Brother Pacemaker Social History Alcohol intake: current Alcohol intake frequency: holidays/special occasions only Patient Tobacco Use Status: Former Tobacco user Current occupational status: employed 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 Review of Systems Const All systems reviewed & are unremarkable except as noted in HPI and below Eyes Reports no additional complaints ENT Reports no additional complaints Card Denies chest pain, Denies irregular heart rhythm and Reports dyspnea on exertion (When working hard and moving around he does have some shortness of breath) Resp Reports as per HPI and Reports dyspnea on exertion (When working hard and moving around he does have some shortness of breath) GI Reports no additional complaints Reports no additional complaints Musc Reports no additional complaints Skin/Breast Reports system reviewed and no additional complaints, except as documented Neuro Reports no additional complaints Psych Reports no additional complaints Herman/Lymph Reports no additional complaints Physical Exam Vital Signs: Last Vital Signs Pulse 104 H 08/24/25 15:05 BP 128/80 08/24/25 15:05 Pulse Ox 100 08/24/25 15:05 Oxygen Delivery Method Room Air 08/24/25 15:05 BMI result Body Mass Index 37.6 Grossly obese, neck size 17-1/2 inch. Const General: healthy appearing (Except for being overweight), comfortable, no acute distress, alert and awake Orientation/consciousness: patient oriented x3 HEENT Head: Yes normal to inspection General nose exam: No nasal polyps present and No nasal discharge present Face and sinus: Yes sinuses nontender Mouth: oropharynx normal Throat: Yes posterior oropharynx normal Eyes General: appearance normal, both eyes and all related structures Neck Neck: Yes normal visual inspection, Yes no lymphadenopathy, Yes trachea midline and Yes no JVD Thyroid: Thyroid normal Chest Chest palpation & inspection: normal inspection of the chest, normal palpation of entire chest wall and no tenderness Resp Effort & Inspection: normal respiratory effort Auscultation: clear to auscultation bilaterally, no rhonchi and no wheezes Cardio Palpation: normal PMI Rate: regular rate Rhythm: regular rhythm Heart sounds: no gallops and no murmurs Peripheral pulses: Peripheral pulses 2+ throughout GI Palpation (GI): Soft to palpation, nontender, No hepatosplenomegaly present and no masses Auscultation: normal bowel sounds Back/Spine/Pelvis Thoracic/Lumbar Spine: thoracic and lumbar spine normal to inspection Skin General skin exam: no rashes or lesions noted Neuro General: patient oriented x3, gait normal and no focal motor deficits Cranial nerves: Yes CN's II-XII intact bilaterally Extrem General: Yes normal to inspection, Yes no clubbing, cyanosis or edema and Yes no calf tenderness Psych Appearance: grossly normal and well kempt Speech and movement: Normal speech and movement present Results Reviewed Results Reviewed: Home sleep test, on 06/27/2025. Results are reviewed with the patient. Total sleep time AHI 39, supine position AHI 59 and right lateral position AHI 26 snoring for 22% of the sleep time. O2 sat below 88% for 48 minutes, indicating sleep-related hypoventilation. Assessment & Plan Assessment & Plan (1) Obesity (BMI 30-39.9): Comment: Patient has gross obesity, current BMI 37.6. He is trying to watch his diet himself and has not been able to lose weight. Code(s): E66.9 - Obesity, unspecified Category: Medical Plan: I talked to him about controlling his diet and also to do some physical exercise on a daily basis. Importance of losing weight is explained. (2) MADDIE (obstructive sleep apnea): Comment: His sleep study is positive for severe sleep apnea , with total sleep time AHI 39, He has underlying diagnosis of hypertension, coronary artery disease hyperlipidemia and diabetes mellitus Code(s): G47.33 - Obstructive sleep apnea (adult) (pediatric) Category: Medical Plan: I educated the patient about his sleep apnea, It is essential to treat adequately , in view of his pre-existing coronary artery disease. He understands and is agreeable. CPAP with auto PAP mode mode and pressure setting of 6-20 cm, is ordered. Patient would use heated humidification Patient educated about the CPAP device and about its usage (3) Nocturnal hypoxemia: Comment: He does have nocturnal hypoxemia with O2 sat below 88% for 48 minutes. This represents sleep-related hypoventilation. And is expected to correct with the use of CPAP. Code(s): G47.34 - Idiopathic sleep related nonobstructive alveolar hypoventilation Category: Medical Plan: Explained to the patient about his low oxygen at night and expect to improve with the CPAP. Once he starts using CPAP regularly would do overnight oximetry recording to confirm that. Coding Level of Care Code New Pt Level 4 (55057) Diagnoses Obesity (BMI 30-39.9) E66.9 MADDIE (obstructive sleep apnea) G47.33 Nocturnal hypoxemia G47.34
--- OUTSIDE RECORDS SUMMARY | 2025-08-24 18:03 | XMS_ITS | Patient Health Record ---
Author Organization [facility] Address [address] [place] [address] Care Team Providers Care Security Sales Manager Name Role Phone David (RETIRED) Mak VÁZQUEZ Primary Care Provide Ryan Haro Jr Unavailable Reason For Referral No Information Medications Medication SIG (Take, Route, Frequency, Duration) Notes Start Date End Date Status MiraLax (colon prep) 17 GM/SCOOP Powder mixed with Gatorade or Crystal Light Orally begin at 5:00 p.m. the day before the procedure; Duration: 1 day 01/24/2022 Active Brilinta 90 MG Tablet Oral; Duration: 90 Active HumaLOG 100 UNIT/ML Solution Injection; Duration: 90 Acti ve Carvedilol 6.25 MG Tablet Oral; Duration: 90 Active MiraLax (colon prep) 17 GM/SCOOP Powder mixed with Gatorade or Crystal Light Orally begin at 5:00 p.m. the day before the procedure; Duration: 1 day 04/04/2022 Active Lisinopril 5 MG Tablet Oral; Duration: 90 Active Trulicity 1.5 MG/0.5ML Solution Pen-injector Subcutaneous; Duration: 84 Active Atorvastatin Calcium 80 MG Tablet Oral; Duration: 90 Active Isosorbide Mononitrate ER 30 MG Tablet Extended Release 24 Hour Oral; Duration: 90 Active Aspirin 81 Active Immunizations Vaccine Route Administration Date Status Comme nts Influenza Unknown 05/23/2021 Administered Social History Tobacco Use: Social History Observation Description Date Details (start date - stop date) Former Smoker NA - NA Social History Drugs/Alcohol: Social Info Question Answer Notes Alcohol Screen Did you have a drink containing alcohol in the past year? Yes How often did you have a drink containing alcohol in the past year? Never (0 point) How many drinks did you have on a typical day when you were drinking in the past year? 1 or 2 drinks (0 point) How often did you have 6 or more drinks on one occasion in the past year? Never (0 point) Points 0 Interpretation Negative Tobacco Use: Social Info Question Answer Notes Tobacco Use/Smoking Patient is a former smoker How long has it been since you last smoked? 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 (Z79.4) Active confirmed Problem Long-term current use of antiplatelet drug (situation) (612637706711735 ) Encounter for current jail use of antiplatelet drug (Z79.02) Active confirmed Plan Of Treatment Future Test Test Name Order Date COLONOSCOPY 01/24/2022 COLONOSCOPY 04/04/2022 Insurance Providers Payer Name Payer Address Payer Phone Subscriber Number Group Number Insured Name Patient Relationship to Insured Coverage Start Date Coverage End Date [facility] [id number] [place] [address] [id number] JAY ROD Self - patient is the insured Medical (General) History Medical History History ICD Code diabetes mellitus Coronary artery disease with history of ID 02/09 hypercholesterolemia Surgical History Surgery Date(Month/Year) TORIE stent placement 02/17/21
== END 2025-08-24 15:42 | disposition home or self-care (01) ==
LOC: HO.HPS 15:01
PROVIDERS: Referring Provider Internal Medicine; Visit Provider Internal Medicine
DX: E66.9 Obesity, unspecified (principal); G47.33 Obstructive sleep apnea (adult) (pediatric); G47.34 Idiopathic sleep related nonobstructive alveolar hypoventilation
CPT/HCPCS: 99214

== ENCOUNTER 2025-09-08 12:39 | Outpatient (AMB) | payer BC, SELFPAY ==
--- NOTE | 2025-09-08 12:48 | MHC.OFFVIS ---
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 Required: No Accompanied by: Self / Same As Patient Allergies No Known Allergies Allergy (Verified 08/24/25 15:11) Medication List - Last Reconciled 09/08/25 by Umberto Abdi NP aspirin 81 mg PO DAILY atorvastatin 80 mg PO BEDTIME carvedilol 6.25 mg PO BID dulaglutide (Trulicity) 1.5 mg subcut QWEEK evolocumab (Repatha SureClick) 140 mg subcut Q2W 3 months ezetimibe 10 mg PO DAILY insulin aspart U-100 subcut TID insulin lispro (Humalog U-100 Insulin) subcut isosorbide mononitrate ER 60 mg PO DAILY lisinopril 5 mg PO DAILY ticagrelor (Brilinta) 90 mg PO BID HPI Comments Details: This is a 54-year-old male patient coming in for a follow-up visit. Patient with a history of hypertension, hyperlipidemia, diabetes, coronary artery disease with STEMI in 2020 status post LAD stenting, and ischemic cardiomyopathy. Most recently due to symptoms of chest discomfort, patient underwent another cardiac catheterization in February of 2025 and had PCI to RCA in 2 PDA and angioplasty of PDA and PLV. Most recently patient was reporting some shortness of breath such as gasping of air at nighttime and underwent a sleep study test that showed positive for sleep apnea and is following with the pulmonology for CPAP management. Patient states that it has been a weeks on the CPAP and he is starting to feel much better. Patient is otherwise denying any cardiac symptoms of exertional chest pain, shortness of breath, palpitations, dizziness, orthopnea, PND, leg edema, presyncope or syncope. This also seems to be some noncompliance with medications as patient states he sometimes misses doses as he forgets. [facility] Medical History Nocturnal hypoxemia MADDIE (obstructive sleep apnea) HTN (hypertension) Cardiomyopathy Myocardial infarction CAD (coronary artery disease) Hyperlipemia Diabetes mellitus Surgical History History of heart artery stent (~01/2021) Family History Father Cancer High cholesterol Mother High cholesterol Heart disease Maternal Grandmother Pacemaker Maternal Grandfather Heart attack Maternal Uncle Heart attack Brother Pacemaker Social History Alcohol intake: current Alcohol intake frequency: holidays/special occasions only Patient Tobacco Use Status: Former Tobacco user Current occupational status: employed 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 Review of Systems Const Denies daytime sleepiness, Denies difficulty sleeping, Denies snoring, Denies stops breathing during sleep and Denies weakness Card Denies chest pain, Denies rapid heart rate, Denies irregular heart rhythm, Denies claudication, Denies leg edema, Denies lightheadedness, Denies palpitations, Reports dyspnea, Denies dyspnea on exertion, Denies orthopnea, Denies paroxysmal nocturnal dyspnea and Denies slow heart rate Resp Denies cough, Reports dyspnea, Denies dyspnea on exertion and Denies snoring GI Reports no additional complaints, Denies hematochezia, Denies change in stool character and Denies dyspepsia Musc Denies abnormal gait, Denies muscle weakness and Denies numbness Neuro Denies abnormal gait, Denies numbness and Denies weakness Endo Denies palpitations Physical Exam Vital Signs: Last Vital Signs Pulse 89 09/08/25 12:49 BP 116/78 09/08/25 12:49 BMI result Body Mass Index 36.7 Const General: cooperative, healthy appearing, comfortable and no acute distress Orientation/consciousness: patient oriented x3 HEENT Head: Yes normal to inspection Neck Neck: Yes normal visual inspection, Yes trachea midline and Yes supple Chest Chest palpation & inspection: normal inspection of the chest Resp Effort & Inspection: normal respiratory effort Auscultation: clear to auscultation bilaterally, no crackles, no rales, no rhonchi and no wheezes Cardio Jugular venous distension: no JVD Palpation: normal PMI Rate: regular rate Rhythm: regular rhythm Heart sounds: S1 normal heart sound present, S2 normal heart sound present, no click, no gallops, no murmurs and no rubs Peripheral pulses: Peripheral pulses 2+ throughout GI Inspection: Yes normal to inspection Palpation (GI): Soft to palpation Auscultation: normal bowel sounds Skin General skin exam: no rashes or lesions noted Neuro General: patient oriented x3 Extrem General: Yes normal to inspection, No no pedal edema and No calf tenderness Psych Appearance: grossly normal Mental Status: mental status grossly normal Speech and movement: Normal speech and movement present Assessment & Plan Assessment & Plan (1) Atherosclerotic cardiovascular disease: Code(s): I25.10 - Atherosclerotic heart disease of [place] coronary artery without angina pectoris Category: Medical Plan: History of coronary artery disease with prior stent to LAD in 2020. Most recently given his chest discomfort and cardiomyopathy with wall motion abnormality, patient underwent another cardiac catheterization with Dr. Almaguer on 03/03/25 that showed patent LAD stent with minimal ISR, lesions in RPDA and 1st RPL. Patient underwent PCI to the RCA into PDA and angioplasty of PDA and PLV. Since cardiac catheterization patient was reporting shortness of breath mostly at nighttime and therefore patient underwent a sleep study test which was positive for severe sleep apnea is now following with pulmonology for CPAP management. Patient states that it has been a week of CPAP therapy and his symptoms have improved significantly. Continue lifelong aspirin therapy. Continue Brilinta for additional 6 months uninterrupted. Continue statin, Repatha, and Zetia therapy with an LDL goal less than 70. Latest LDL at 100 not within goal. Requested to complete his lipid panel. Continue carvedilol, isosorbide, and lisinopril therapy. Emphasized the importance of med compliance and suggested using pillbox. Patient understanding and agreeable. (2) Essential hypertension: Code(s): I10 - Essential (primary) hypertension Category: Medical Plan: Blood pressure today is well-controlled. Continue current regimen with a blood pressure goal less than 130/80. Advised on low-salt diet. (3) Other and unspecified hyperlipidemia: Code(s): E78.5 - Hyperlipidemia, unspecified Category: Medical Plan: As above. (4) Diabetes mellitus: Comment: taking trulicity & humalog Code(s): E11.9 - Type 2 diabetes mellitus without complications Category: Medical Plan: Continue diabetes management with an A1c goal less than 7%. Follows with PCP. (5) MADDIE (obstructive sleep apnea): Comment: His sleep study is positive for severe sleep apnea , with total sleep time AHI 39, He has underlying diagnosis of hypertension, coronary artery disease hyperlipidemia and diabetes mellitus Code(s): G47.33 - Obstructive sleep apnea (adult) (pediatric) Category: Medical Plan: Continue CPAP. Followed by pulmonology. Advised on heart healthy diet, regular exercise, losing weight, med compliance, and aggressive management of vascular risk factors. Follow up in 6 months. In the interim, patient will call the office with any concerns or change in symptoms. This note was generated using voice recognition software. While every effort has been made to ensure accuracy and proper diabetes manager, there may be occasional errors that could affect the content or meaning of the described symptoms. Coding Level of Care Code Est Pt Level 4 (32179) Add On Problem Visit Only Diagnoses Atherosclerotic cardiovascular disease I25.10 Essential hypertension I10 Other and unspecified hyperlipidemia E78.5 Diabetes mellitus E11.9 MADDIE (obstructive sleep apnea) G47.33 Time Spent (min) 33 Comment Time spent in reviewing the chart, test results, assessment, counseling and documentation.
[2025-09-08 12:49] VITALS: BP 116/78; PULSE 89; BMI 36.7
--- OUTSIDE RECORDS SUMMARY | 2025-09-08 16:29 | XMS_ITS | Patient Health Record ---
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 Problems Problem Type SNOMED Code ICD Code Onset Dates Problem Status W/U Status Risk Notes Problem Colon cancer screening (039410600) Colon cancer screening (Z12.11) Active confirmed Problem Rectal bleeding (60352878) Rectal bleeding (K62.5) Active confirmed Problem History of polyp of colon (situation) (856069562) Personal history of colonic polyps (Z86.010) Active confirmed Problem Long-term current use of insulin (072029293) 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 (Z79.4) Active confirmed Problem Long-term current use of antiplatelet drug (situation) (449548256335763 ) Encounter for current halfway use of antiplatelet drug (Z79.02) Active confirmed Plan Of Treatment Future Test Test Name Order Date COLONOSCOPY 01/24/2022 COLONOSCOPY 04/04/2022 Insurance Providers Payer Name Payer Address Payer Phone Subscriber Number Group Number Insured Name Patient Relationship to Insured Coverage Start Date Coverage End Date [facility] [id number] [place] [address] [id number] JAY ROD Self - patient is the insured Medical (General) History Medical History History ICD Code diabetes mellitus Coronary artery disease with history of PR 02/09 hypercholesterolemia Surgical History Surgery Date(Month/Year) TORIE stent placement 02/17/21
== END 2025-09-08 13:07 | disposition home or self-care (01) ==
LOC: HO.HCS 12:40
PROVIDERS: PCP Internal Medicine
DX: I25.10 Atherosclerotic heart disease of native coronary artery without angina pectoris (principal); I10 Essential (primary) hypertension; E78.5 Hyperlipidemia, unspecified; E11.9 Type 2 diabetes mellitus without complications; G47.33 Obstructive sleep apnea (adult) (pediatric)
CPT/HCPCS: 99214